=== PATIENT | female | born 1960 | race Caucasian/White ===

== ENCOUNTER 2023-12-12 21:47 | Inpatient (IN) | payer MEDICARE, BC, SELFPAY ==
--- NOTE | 2023-12-12 21:50 | W.CVOR.SURPR ---
CVOR Surgeon Immed Pre Op
-
I have examined this patient prior to performance of the scheduled procedure.
The patient's condition is unchanged from the time of the dictated/written History and
Physical and the patient is able to undergo the scheduled procedure.
--- NOTE | 2023-12-12 21:50 | W.PN.UPDATE ---
Update Note
Progress Note Update
63 y/o presented to [facility] with nstemi
cath revealed ostial rca disease
Unsuccessful PCI attempt with residual rca dissection
Pt without pain on arrival
IABP in place
Discussed with Dr Melendez in detail
Plan for emergent cabg to rca (?anamolous cx as well)
Discussed with patient who understands and wishes to proceed with emergent cabg
In additon, I have discussed all of this with her son on the phone.
Pt arrival to 940PM
[2023-12-12 22:05] LABS: ACT+ - POC 123 Seconds (82-134)
--- NOTE | 2023-12-12 22:35 | HPS.HSE ---
Family Physician
-
Family Physician: Dr. Thanh Quintero
Outpatient Savings Counselor: Dr. Omega Melendez at [facility]
Inpatient Savings Counselor: Dr. Tamie De Guzman
Chief Complaint
-
Transfer from [facility] on 12/12/23 for emergent CABG d/t RCA dissection, on IABP.
History of Present Illness
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 She has been on daily Plavix since. Pt had loop recorder after CVA, which showed no evidence of a-fib. She also has hx of HTN,
HLD, chronic hyperkalemia, DM II (most recent HgA1c 6.7%), diagnosis of mixed autoimmune disease, GERD, psoriatic arthritis, R carpal tunnel surgery, sinus surgery.
Pt. usually takes care of her who is bedbound. After moving him in bed on the morning of 12/12/23, she noted L-sided chest pain radiating to her jaw for 1 hour intermittently. EMS was called and she was given 4 baby aspirins. On arrival to the
ED, pt was pain free and demonstrated stable vital signs. She was diagnosed with NSTEMI with high-sensitivity troponin trends 35->262. Of note, K was 5.4. Her most recent LDL was 78. Patient could not tolerate higher dose of Atorvastatin and has
been on 20 mg daily. As a screening measure, pt had nuclear stress test in 2022 which did not demonstrate ischemia or scar.
Echo 12/12/23 revealed normal LVEF 60-65%, nl RV systolic fxn, nl R atrium size with lipomatous hypertrophy of the interatrial septum, grade I diastolic dysfunction, no significant valvular dz.
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 There was hazy 90% stenosis of proximal RCA with appearance of plaque rupture, which was the culprit of pt's NSTEMI. Unfortunately, PCI was
unsuccessful due to anatomic reasons and a flow-limiting dissection flap propagated following attempted intervention, which was unable to be recrossed by a wire. Pt was stabilized with IABP, iv Nitro, Heparin and transferred emergently to for
CABG. Cath also revealed mild-mod nonobstructive LAD dz. 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 There were normal left heart catheterization
pressures with no evidence of aortic stenosis.
On arrival, pt had no CP, no complaints, on 1:1 IABP.
Medical History
Past Medical History
Past Medical History: Reports CVA (in 2020 with L sided hemiparesis- resolved), GERD, HTN, Hypercholesterolemia and NIDDM
Additional Past Medical History:
Psoriatic arthritis, hyperkalemia (on Lokelma 3 times per week), mixed autoimmune dz
Past Surgical History: Reports Other (R carpal tunnel surgery, sinus surgery)
Additional Past Surgical History:
Implantable loop recorder, R carpal tunnel surgery, sinus surgery
Social History
Tobacco: Former Smoker (2 ppd for 4-5 years, quit in 1985)
Alcohol: None
Drug: None
Personal: (takes care of , who is bedbound)
Living: With Family
Family History
Family History: CAD and Other (DM II , Liver Cancer, COPD)
Allergies / Home Medications
Allergies reflects when Allergies were last updated in [employer].
Home Medication
Home Medication List (Pre admission)
�Medication �Instructions �Recorded
amlodipine 10 mg tablet 10 mg PO DAILY 12/12/23
apremilast 30 mg tablet 30 mg PO BID 12/12/23
atorvastatin 20 mg tablet 20 mg PO HS 12/12/23
carvedilol 12.5 mg tablet (Coreg) 12.5 mg PO BID 12/12/23
clopidogrel 75 mg tablet 75 mg PO DAILY 12/12/23
famotidine 20 mg tablet 20 mg PO BID 12/12/23
metformin 500 mg tablet 500 mg PO BID 12/12/23
sodium zirconium cyclosilicate 5 PO QMWF 12/12/23
gram oral powder packet (Lokelma)
Allergies
Allergy/AdvReac Type Severity Reaction Status Date / Time
Sulfa (Sulfonamide Allergy unknown Verified 12/12/23 18:42
Antibiotics)
Allergy/Medication List:
Sulfa
Review of Systems
-
Unable to obtain full review of systems at this time due to: Acuity (Pt taken emergently to CVOR)
History Source: Transfer Record
Constitutional: Reports See HPI
Physical Exam
Physical Exam
General: Well Developed, Well Nourished and No Apparent Distress
HEENT: NormoCephalic, Anicteric, Moist mucous membranes and Atraumatic
Respiratory: Non Labored Respirations
Cardiac: S1/S2
GI: Soft and Non Tender
Neuro: Awake and AO x 3
Psych: Calm and Intact Judgment/Insight
Data Reviewed
-
Medical Tests (Nuc Med, Echo, EKG etc): Report Reviewed by me
Lab Data: Labs Reviewed by me
Old Records: Reviewed
Impression/Plan
-
IMPRESSION:
-NSTEMI with 90% prox RCA stenosis. PCI was unsuccessful and complicated by a flow-limiting dissection. Pt was stabilized with IABP placement, iv Nitro, iv Heparin and sent for urgent CABG on 12/12/23
-LVEF nl 60-65%, no significant valvular dz
-DM II (latest HgA1c was 6.7)
-HTN
-HLD (tolerated 20 mg Atorvastatin, didn't tolerate higher doses of Atorvastatin. Last LDL was 78)
-Chronic Hyperkalemia- on Lokelma 5 grams on Fri, Fri, and Friday
-CVA in 2020 with resolved L hemiparesis, on daily Plavix since. Pt received 75 mg of Plavix on 12/12/23
-Mixed autoimmune dz
-Psoriatic arthritis
-Former smoker, quit 1985
-R carpal tunnel surgery
-Hx sinus surgery
-GERD
PLAN:
-pt was taken urgently to CVOR by Dr. Sorensen
[2023-12-12 23:10] LABS: B.E. - POC -3.5 mmol/L; Glucose - POC 113 mg/dl (65-99); HCO3 - POC 22 mmol/L (21-29); Hematocrit - POC 41 % PCV (37-47); Hemodilution- POC Yes; Hemoglobin Calculated - POC 13.8; Ionized Calcium - POC 1.23 mmol/L (1.12-1.27); O2 Saturation %Calculated-POC 99.9 5 (92-96); PCO2 - POC 38 mmHg (35-45); PO2 - POC 287 mmHg (80-100); POC Comment PRE; Potassium - POC 3.8 mmol/L (3.6-5.0); Sodium - POC 143 mmol/L (135-145); pH - POC 7.36 (7.35-7.45)
[2023-12-12 23:27] LABS: Urine Albumin Negative (Neg - Trace); Urine Bilirubin Negative (Negative); Urine Character Clear (Clear); Urine Color Straw; Urine Glucose Negative (Negative); Urine Ketone 1+ (Negative); Urine Leukocyte Trace (Negative); Urine Nitrite Negative (Negative); Urine Occult Blood Trace (Negative); Urine Specific Gravity 1.015 (<1.030); Urine Urobilinogen Negative (Neg - 1+)
[2023-12-13] VITALS (42 sets, daily range): BP systolic 88–133; BP diastolic 51–83; BMI 31.8
[2023-12-13 00:18] LABS: B.E. - POC -5.4 mmol/L; Glucose - POC 124 mg/dl (65-99); HCO3 - POC 22 mmol/L (21-29); Hematocrit - POC 33 % PCV (37-47); Hemodilution- POC Yes; Hemoglobin Calculated - POC 11.1; Ionized Calcium - POC 1.11 mmol/L (1.12-1.27); O2 Saturation %Calculated-POC 99.9 5 (92-96); PCO2 - POC 51 mmHg (35-45); PO2 - POC 309 mmHg (80-100); POC Comment OFF CPB; Sodium - POC 139 mmol/L (135-145); pH - POC 7.25 (7.35-7.45)
[2023-12-13 00:37] LABS: B.E. - POC -7.1 mmol/L; Glucose - POC 194 mg/dl (65-99); HCO3 - POC 20 mmol/L (21-29); Hematocrit - POC 33 % PCV (37-47); Hemodilution- POC Yes; Hemoglobin Calculated - POC 11.1; Ionized Calcium - POC 1.12 mmol/L (1.12-1.27); O2 Saturation %Calculated-POC 99.1 5 (92-96); PCO2 - POC 42 mmHg (35-45); PO2 - POC 154 mmHg (80-100); POC Comment POST; Potassium - POC 3.8 mmol/L (3.6-5.0); Sodium - POC 141 mmol/L (135-145); pH - POC 7.27 (7.35-7.45)
[2023-12-13 00:37] LABS: ACT+ - POC 98 Seconds (82-134)
--- NOTE | 2023-12-13 00:43 | W.PN.CT.SURG ---
CT Surgery Operative Note
-
Pre-op Diagnosis: nstemi
unsuccessful PCI with RCA dissection
chronic plavix therapy for cva
Post-op Diagnosis: Same
Procedure: Cabg x 1
ao-svg-rca
off pump
Left EVH
TTFM
Primary Surgeon: Highbloom
Assisting Surgeons: Zini - leg and chest
Specimen: None
Cultures: None
Complications / Blood Loss: None
Findings: Sharif with preserved EF pre and post revascularization
Good quality vein
good distal target
almost no flow in coronary when opened
100cc flow, PI .4
[2023-12-13 00:52] LABS: Urine Bacteria Few (Negative); Urine Squamous Cell 0-2 /LPF (Few)
[2023-12-13 01:42] LABS: Glucose - Point of Care 147 mg/dl (70-99)
[2023-12-13] MEDS: LEVOPHED 250 IV (02:00)
[2023-12-13] MEDS: NOVOLIN R INSULIN INFUSION 100 IV ×2 (02:00→20:48)
[2023-12-13] MEDS: NSS 500 IV (02:00)
[2023-12-13] MEDS: LR 500 IV (02:00)
[2023-12-13 02:03] LABS: Hematocrit 31.1 % (37.0-47.0); Hemoglobin 10.3 g/dL (12.0-16.0); Platelet Count 163 10^3/uL (130-400)
[2023-12-13 02:06] LABS: HCO3 19.7 mmol/L (21-28); Ionized Calcium 1.28 mMOL/L (1.15-1.33); PCO2 44 mmHg (32-35); PO2 133 mmHg (83-108); Potassium 3.8 mMOL/L (3.5-5.1); Sodium 137 mMOL/L (136-145); pH 7.26 (7.35-7.45)
[2023-12-13 02:08] LABS: Mixed Venous O2 Saturation 84.2 %
[2023-12-13 02:15] LABS: INR 1.36; PT 16.6 Sec (11.4-14.6)
[2023-12-13 02:16] LABS: APTT 29.5 Sec (23.4-35.0)
[2023-12-13 02:21] LABS: Blood Urea Nitrogen 16 mg/dl (7-17); Estimated Creatinine Clearance 84 ml/min; Glucose 141 mg/dl (70-99); Magnesium 2.5 mg/dl (1.6-2.3)
[2023-12-13] MEDS: KCL 50 IV ×2 (02:30→03:44)
[2023-12-13] MEDS: SODIUM BICARBONATE 100 MEQ IV (02:30)
[2023-12-13] MEDS: BACTROBAN 2% OINTMENT 1 APPLIC NASAL ×3 (03:00→21:38)
--- NOTE | 2023-12-13 03:00 | PTCARENOTE ---
Patient received from CVOR to room 2265. Intubated/Ventilator. #8.0 ETT 23cm Right lip. AC Rate 12 TV 500 PEEP 5 FiO2 100%. SaO2 100%. Patient sleepy. Precedex 0.6 mcq/kg/min (12.6 ml/hr). No adventitious breath sounds. Two chest tubes -
Mediastinal x2. Sinus Rhythm. Heart rate 70-80's. V-Wire. Levophed 2 mcq/min (7.5 ml/hr). Abdomen soft, round, nontender. Hypoactive bowel sounds. No BM. No vomiting. Brooks catheter - Hourly outputs as documented. Positive Doppler pulses -
Dorsalis pedis and Posterior tibial. Generalized edema. Right I.[place]. Cordis with [place] Catheter. Right radial arterial line. Right femoral arterial line. Right femoral IABP - 1:2 Frequency, EKG Trigger. Portable CXR completed. Endotracheal tube
moved to 21cm by Respiratory Therapist. FiO2 decreased to 70%. Mouth care provided. 1 AMP Sodium Bicarb x2 per PA Order. Insulin gtt - Glycemic Protocol. Assessment as documented.
[2023-12-13 03:09] LABS: Glucose - Point of Care 141 mg/dl (70-99)
[2023-12-13 03:17] LABS: B.E. 0.8 mmol/L; HCO3 25.3 mmol/L (21-28); PCO2 39 mmHg (32-35); PO2 158 mmHg (83-108); pH 7.42 (7.35-7.45)
[2023-12-13] MEDS: NEURONTIN PO (03:34)
[2023-12-13] MEDS: SENOKOT-S PO (03:34)
[2023-12-13] MEDS: TYLENOL PO ×2 (03:35→06:14)
[2023-12-13 04:15] LABS: Glucose - Point of Care 122 mg/dl (70-99)
--- NOTE | 2023-12-13 05:00 | PTCARENOTE ---
FiO2 decreased to 40%. SaO2 97%. Patient opening eyes - Pupils equal in size and reaction. Patient nodding head appropriately to simple verbal commands. Movement of extremities. Positive, equal hand grasps. Potassium chloride 20 mEq x2 IV.
One Platelet (262 ml) infused without difficulty - No transfusional reaction noted. Right radial arterial line dampened. Right femoral arterial line accessed - Flushes without difficulty - Zeroed and calibrated - Waveform within normal limits.
IABP readings as documented. Patient given CHG bath and linens changed. Chest tube dressing changed. Sternal incision - Surgical adhesive. Left groin puncture site intact. Left knee incision - Surgical adhesive - [place] Storm Wrap.
Assessment/Interventions as documented.
[2023-12-13 05:22] LABS: Glucose - Point of Care 119 mg/dl (70-99)
[2023-12-13 05:50] LABS: B.E. 0.7 mmol/L; HCO3 25.4 mmol/L (21-28); Ionized Calcium 1.13 mMOL/L (1.15-1.33); O2 Saturation % 97.4 % (94-98); PCO2 40 mmHg (32-35); PO2 71 mmHg (83-108); Potassium 4.5 mMOL/L (3.5-5.1); pH 7.41 (7.35-7.45)
[2023-12-13 05:58] LABS: Hematocrit 33.2 % (37.0-47.0); Hemoglobin 11.3 g/dL (12.0-16.0); Mean Corpuscular Hgb 29.2 pg (27.0-31.0); Mean Corpuscular Volume 85.8 fL (81.0-99.0); Mean Platelet Volume 10.1 fL (7.4-10.4); Platelet Count 190 10^3/uL (130-400); Red Blood Cell Count 3.87 10^6/uL (4.20-5.40); White Blood Cell Count 12.3 10^3/uL (4.8-10.8)
[2023-12-13] MEDS: OFIRMEV 100 IV (06:00)
[2023-12-13 06:19] LABS: Blood Urea Nitrogen 16 mg/dl (7-17); Calcium 8.3 mg/dl (8.4-10.2); Carbon Dioxide 24 mmol/L (22-30); Chloride 110 mmol/L (98-107); Estimated Creatinine Clearance 98 ml/min; Glucose 121 mg/dl (70-99); Magnesium 2.2 mg/dl (1.6-2.3); Potassium 4.6 mmol/L (3.5-5.1); Sodium 139 mmol/L (135-145); eGFR > 60.00
[2023-12-13 06:20] LABS: Glucose - Point of Care 133 mg/dl (70-99)
--- NOTE | 2023-12-13 06:25 | RESPNOTE ---
PT was extubated at this time following a 30 minute weaning trial and an acceptable ABG after. PT was placed on a 6 L nasal cannula post extubation and did well with her I/S, 3 x 1,000 mls.
--- NOTE | 2023-12-13 06:30 | PTCARENOTE ---
CPAP wean started at 0510 - Patient tolerating. IV Ofirmev for pain management. Patient extubated at 0625 without difficulty. Patient A+A+Ox3. No neurological deficits noted. Levophed and Precedex titrated off at 0500. Blood pressure 123/66
(97). Patient resting in bed without difficulty. Assessment/Interventions as documented.
--- NOTE | 2023-12-13 06:45 | W.PN.CT ---
Today's Communication / Plan
-
-pod #1
-no issues overnight, in nsr 70s, hemodynamically stable
-extubated uneventfully at 6:25 am
-got total 2 units platelets for coagulopathy, 100 bicarb overnight
-IABP 1:2 with MAP 70s-90s
-drips: insulin, 500cc LR @ 100/hr, Levo is off
-CT output: 2 meds 220 since OR
-wean off IABP- likely d/c today
-UO 250-350 per hr
-follow K (hx of hyperkalemia, on Lokelma at home)
-V-pw (off)
-current meds (ASA, Plavix, Lipitor, Lopressor, Protonix)
-encourage IS
Assessment / Plan
-
-s/p off-pump CABG x1 (Ao-svg-Rca); L EVH on 12/12/[address] Sorensen, pod #1
- Intraop Sharif with preserved EF pre and post revascularization
-NSTEMI with 90% prox RCA stenosis. PCI was unsuccessful and complicated by a flow-limiting dissection. Pt was stabilized with IABP placement, iv Nitro, iv Heparin and sent for urgent CABG on 12/12/23
-LVEF nl 60-65%, no significant valvular dz
-DM II (latest HgA1c was 6.7)
-HTN
-HLD (tolerated 20 mg Atorvastatin, didn't tolerate higher doses of Atorvastatin. Last LDL was 78)
-Chronic Hyperkalemia- on Lokelma 5 grams on Fri, Fri, and Friday
-CVA in 2020 with resolved L hemiparesis, on daily Plavix since. Pt received 75 mg of Plavix on 12/12/23
-Mixed autoimmune dz
-Psoriatic arthritis
-Former smoker, quit 1985
-R carpal tunnel surgery
-Hx sinus surgery
-GERD
-Acute postop blood loss anemia - stable, no transfusion
-Acute postop coagulopathy - s/p 2 unit platelets
-Acute postop metabolic acidosis
-Acute postop atelectasis
-Acute postop hypovolemia with subsequent hypervolemia
Discussed patient care with: Nursing and Care Team
Subjective
Procedure
-s/p off-pump CABG x1 (Ao-svg-Rca); L EVH on 12/12/[address] Sorensen
-
Date of Service: December 13, 2023
Objective Data
-
Lab Results
12/13/23 06:00
12/13/23 06:00
PT 16.6 Sec (11.4-14.6) H 12/13/23 01:53
INR 1.36 12/13/23 01:53
APTT 29.5 Sec (23.4-35.0) 12/13/23 01:53
Vital Signs
Vital Signs
Temp Pulse Resp BP Pulse Ox
97.0 F 81 12 122/80 98
12/13/23 03:00 12/13/23 03:00 12/13/23 03:00 12/13/23 03:00 12/13/23 03:00
CT Intake/Output/Weight
12/12/23 12/12/23 12/13/23
06:59 18:59 06:59
Intake Total 123.6 / 123.6
Output Total 370 / 370
Balance -246.4 / -246.4
SaO2: 98
Physical Exam
-
General: Other (sleepy, intubated)
Cardiovascular: Regular rate & rhythm, No Murmurs and No Rub
Respiratory: Decreased Breath Sounds
Sternum: Stable
Incision: Clean, Dry and Intact
Extremities: Other (trace edema b/l, 1+ DPs b/l)
Data Reviewed
-
Lab Results: Results Reviewed
Medications: Active Meds Reviewed
Chest X-Ray: Report Reviewed and Image Reviewed
ECG: Report Reviewed and Image Reviewed
--- NOTE | 2023-12-13 06:45 | CON.INTV ---
Consultation
Consultation Request
Date/Time Consultation Requested: 12/12
Date/Time Consultation Performed: 12/12
Reason for Consultation: Critical care
Medical History
-
History of Present Illness:
History obtained from the patient, medical records, outpatient records. Patient was transferred from [facility] 12/12/2023 emergently for CABG. patient had been on Plavix after recent questionable stroke. Workup ruled out obvious atrial
fibrillation. Patient developed acute left-sided chest pain radiating to the jaw for 1 hour on 12/11. EMS was called, patient was given baby aspirin and taken to [facility]. Patient had non-ST elevation [place], underwent cardiac
catheterization with unsuccessful PCI due to anatomic reasons and flow-limiting dissection flap. Patient had IABP placed, on nitroglycerin, heparin and transferred to [facility]. Patient went for bypass surgery, was extubated in the
morning 12/12. We are asked to help from critical care standpoint.
Presently, patient has incisional discomfort but otherwise denies any jaw pain, nausea, shortness of breath. She is conversant and comfortable appearing
.
PMH: Hypertension, hyperlipidemia, diabetes, obesity, chronic pain, cerebrovascular disease/stroke
Past Medical History
Past Medical History: None (See above)
Past Surgical History: None (See above)
Social History
Tobacco: Former Smoker ([id number], quit many years ago)
Alcohol: Occasional
Drug: None
Personal:
Living: With Family
Employment: Retired
Family History
Family History: Other (Parents . Family history negative for lung cancer, blood clots)
Allergies / Home Medications
Allergies
Allergy/AdvReac Type Severity Reaction Status Date / Time
Sulfa (Sulfonamide Allergy unknown Verified 12/12/23 18:42
Antibiotics)
Home Medications
�Medication �Instructions �Recorded �Confirmed �Last Taken �Type
amlodipine 10 mg tablet 10 mg PO DAILY 12/12/23 12/12/23 Unknown History
apremilast 30 mg tablet 30 mg PO BID 12/12/23 12/12/23 Unknown History
atorvastatin 20 mg tablet 20 mg PO HS 12/12/23 12/12/23 Unknown History
carvedilol 12.5 mg tablet (Coreg) 12.5 mg PO BID 12/12/23 12/12/23 Unknown History
clopidogrel 75 mg tablet 75 mg PO DAILY 12/12/23 12/12/23 12/12/23 History
75 mg
famotidine 20 mg tablet 20 mg PO BID 12/12/23 12/12/23 Unknown History
metformin 500 mg tablet 500 mg PO BID 12/12/23 12/12/23 Unknown History
sodium zirconium cyclosilicate 5 PO QMWF 12/12/23 Unknown History
gram oral powder packet (Lokelma)
Review of Systems
-
All other systems: Negative unless noted
Vitals / Labs / Diagnostic Testing
Vital Signs
Temp Pulse Resp BP Pulse Ox
97.5 F 85 15 127/83 97
12/13/23 06:00 12/13/23 06:00 12/13/23 06:00 12/13/23 06:00 12/13/23 06:00
Lab Data
12/13/23 05:40
12/13/23 06:00
Laboratory Results
12/13/23 12/13/23 12/13/23
00:38 01:53 03:09
PT Cancelled 16.6 H
INR Cancelled 1.36
APTT Cancelled 29.5
pH Cancelled 7.26 L 7.42
pCO2 Cancelled 44 H 39 H
pO2 Cancelled 133 H 158 H
HCO3 Cancelled 19.7 L 25.3
O2 Delivery Level Cancelled
12/13/23
05:40
PT
INR
APTT
pH 7.41
pCO2 40 H
pO2 71 L
HCO3 25.4
O2 Delivery Level
Diagnostic Testing:
Physical Exam
-
HEENT: Normocephalic, Anicteric, Other (IJ, A-line, chest tube) and Other (Large neck)
Cardiovascular: S1/S2, Regular Rhythm, Murmur (n), Rub (n) and Peripheral Edema (tr)
Respiratory: Wheeze (n), Rales (n), Rhonchi (n) and Other (Decreased breath sounds, mild splinting)
GI: Soft, Non Distended and Non Tender
Neurology: Awake, Alert and No Motor Deficits (Moves all extremities)
Skin: Other (Mild pallor)
General: Comfortable
Assessment
-
63-year-old female with history of hypertension, hyper lipidemia, diabetes, presents with acute chest pain with radiation to the jaw, had NST elevation [place], underwent cardiac catheterization at [facility] found to have flow-limiting
dissection unable to perform successful PCI, transferred to [facility] for bypass surgery on IABP. Patient is status post off-pump CABG 12/12, with IABP in place
S/p CABG x 1, 12/13/23
Unsuccessful PCI with RCA dissection at [facility] 12/12
IABP placed at [facility]
NSTEMI, eval at H
Chest pain/jaw pain
History of stroke, on Plavix
s/p platelets
History of hyperkalemia
Conditions present prior to admission
Hypertension/hyperlipidemia
Diabetes
Suspected sleep apnea
[id number]-[id number] history of smoking, quit
Plan/recommendations
At this time, patient is critically ill but appears to be stable. Extubated without difficulty this morning. Denies any chest tightness, jaw pain
Chest x-ray unremarkable, EKG with nonspecific changes
Chest tube output minimal.
Patient currently on insulin drip, IV fluids. Required norepinephrine overnight, currently being weaned off
Moving forward
Continue with management per CT surgery
Has been weaned off norepinephrine
Remains on insulin drip, follow blood sugars
IABP remains in place, 1:2, appropriate MAPS
Chest tube and IABP management per CT surgery
Follow electrolytes
Pain control, incentive spirometry
Strongly suspected sleep disordered breathing. Given comorbidities, would recommend outpatient workup and treatment as appropriate
Reviewed with critical care nursing
We will follow
TCCT 31 min
--- NOTE | 2023-12-13 07:36 | W.PN.ANS.POP ---
Anesthesia Post Operative
- Anesthesia Post Op Note
Vital Signs Stable-See Nursing Note: Yes
Airway Patent: Yes
Adequate Pain Control: Yes
Change in Mental Status: No
Current Postoperative Nausea & Vomiting: No
Anesthesia Complications: No
General Anesthetic Recall: No
Unplanned Admission: No
Post Op Hydration Adequate: Yes
[2023-12-13 08:11] LABS: Glucose - Point of Care 110 mg/dl (70-99)
[2023-12-13] MEDS: CALCIUM CHLORIDE 10% SYRINGE 50 MG IV (08:19)
[2023-12-13] MEDS: CALCIUM CHLORIDE 10% SYRINGE 50 ML IV (08:19)
[2023-12-13] MEDS: LR IV ×2 (08:19→11:14)
--- NOTE | 2023-12-13 08:30 | PTCARENOTE ---
SKIDDER LOADER, Laisha d/c IABP bedside. fem stop applied. pulses by doppler. A line d/c and held pressure. remains on insulin gtt per glycemic protocol. VSS. weaned to 4L nc. IS to 1250. SR/ST 80-100s. See MAR for med dosing for pain. Will d/c carlos and bulb
CTs this afternoon and get pt oob after 6 hr bedrest.
--- NOTE | 2023-12-13 08:51 | W.PN.CD ---
Addendum entered and electronically signed by Tamie De Guzman MD 12/13/23 11:58:
I saw and examined the patient.
The POULTRY FARMWORKER's note was reviewed and I agree with the note.
Comment: SHe is anixous to change positions, but no cp. She is has a reg rate and rhythm, lying flat on bed, lungs are cta b/l. Continue post op care. Will add zetia to her atorvastatin given need for better ldl and intolerance to higher
atorvastatin. Eventually may need a PCSK9 inhibitor.
Original Note:
Today's Communication / Plan
-
Follow telemetry
Impression / Plan
-
BACKGROUND: 63F transferred for emergent CABG. She had an NSTEMI with unsuccessful PCI due to anatomic reasons with dissection & IABP was placed prior to transfer. She was on clopidogrel for questionable CVA.
IMPRESSION/PLAN:
NSTEMI S/P CABG (Ao-SVG-RCA) by Dr Sorensen on
-EKG stable
-CHRISTIAN with preserved pre and post LVEF
-IABP removed this morning, FemStop in place
-Postoperative management per CT surgery
Postoperative coagulopathy s/p 2 platelet
HLD, did not tolerate doses greater than 20mg of atorvastatin, LDL > 70, consider transition to rosuvastatin
Type II DM (Hgba1c pending)
Chronic hyperkalemia on [facility]
Former smoker, continued cessation recommended
SUBJECTIVE:
Denies chest pain, shortness of breath, dizziness.
Physical Exam
Vital Signs/Labs
Vital Signs
Temp Pulse Resp BP Pulse Ox
97.8 F 82 21 118/68 96
12/13/23 08:00 12/13/23 08:00 12/13/23 08:00 12/13/23 08:00 12/13/23 08:00
12/12/23 12/13/23 12/14/23
06:59 06:59 06:59
Actual Weight 83.91 kg
12/13/23 05:40
12/13/23 06:00
PT 16.6 Sec (11.4-14.6) H 12/13/23 01:53
INR 1.36 12/13/23 01:53
APTT 29.5 Sec (23.4-35.0) 12/13/23 01:53
Magnesium Cancelled 12/13/23 06:00
LAB Results
12/12/23
22:08
Troponin I 1.280 H*
Physical Exam
Constitutional: No acute distress and Comfortable
EENT: Anicteric and Moist mucous membranes
Cardiovascular: Rhythm & rate is regular, Systolic murmur present and S1S2 is normal
Respiratory: Respiratory effort normal and Lungs clear to auscul.
GI: Soft, Distention absent, Flat, Non tender and Normal bowel sounds
Neuro/Psych: AO x 3
Other: Skin (Warm and dry without edema)
Data Reviewed
-
Date of Service: December 13, 2023
[2023-12-13] MEDS: NEURONTIN 100 MG PO ×3 (08:58→21:39)
[2023-12-13] MEDS: ANCEF 5 IV ×2 (08:58→16:54)
[2023-12-13] MEDS: DILAUDID 0.25 MG IV ×2 (08:58→18:32)
[2023-12-13] MEDS: MAGNESIUM OXIDE 500 MG PO ×2 (08:59→21:38)
[2023-12-13] MEDS: LIDOCAINE 4% PATCH 1 PATCH TOPICAL (08:59)
[2023-12-13] MEDS: SENOKOT-S 1 TABLET PO ×2 (08:59→21:39)
[2023-12-13] MEDS: LOPRESSOR 12.5 MG PO ×2 (08:59→21:38)
[2023-12-13] MEDS: PROTONIX 40 MG PO (08:59)
[2023-12-13] MEDS: PLAVIX 75 MG PO (08:59)
[2023-12-13] MEDS: NOVOLOG FLEXPEN SC ×2 (09:04→13:25)
--- NOTE | 2023-12-13 09:41 | W.PN.CARD.SR ---
Sheath/IABP Sheath Removal
IABP Sheath Removal
Right Arterial Femoral:
Site appearance prior to IABP sheath removal: Intact
IABP sheath removed by:: Registered nurse (KALANI)
Name of associate removing IABP sheath: Jessy URIARTE
Time of IABP sheath removal: 08:30
Time hemostatis achieved: 09:15
Site appearance post IABP sheath removal: Intact
Method of Hemostasis Post IABP Sheath Removal: External Pressure Device
Name of device: Fem-stop
Dressing dry and intact?: Yes
[2023-12-13 11:13] LABS: Glucose - Point of Care 108 mg/dl (70-99)
[2023-12-13 12:05] LABS: Glycohemoglobin (HgbA1c) 6.7 % (4.0-5.6)
[2023-12-13 13:25] LABS: Glucose - Point of Care 92 mg/dl (70-99)
[2023-12-13] MEDS: TYLENOL 1000 MG PO ×2 (13:27→21:39)
--- NOTE | 2023-12-13 15:10 | PTCARENOTE ---
OOB to chair. patient slightly dizzy. reports she has vertigo intermittently which is positional. VSS. tolerating diet.
[2023-12-13 15:15] LABS: Glucose - Point of Care 257 mg/dl (70-99)
[2023-12-13] MEDS: LIPITOR 20 MG PO (16:54)
[2023-12-13 16:58] LABS: Glucose - Point of Care 235 mg/dl (70-99)
[2023-12-13] MEDS: NOVOLOG FLEXPEN 4 UNITS SC (17:48)
[2023-12-13 18:36] LABS: Glucose - Point of Care 181 mg/dl (70-99)
[2023-12-13 20:09] LABS: Glucose - Point of Care 132 mg/dl (70-99)
--- NOTE | 2023-12-13 20:30 | PTCARENOTE ---
Report received from CHIQUITA Moreau. Walking rounds done. Pt sitting in recliner chair. initial SBP 88 mm HG. Repeat BP 94 mm Hg systolic. Pt helped to BSC to attempt to void. Unable to void. Pt helped back to bed. Bladder scanned for 97 mls urine.
CHERISE Lange notified. Encouraged po intake of water. Sats in bed were 88-89% on 2L/NC. CDB and IS done. IS peak 1000 mls. O2 increased to 5L/NC. Sats up to 95%.
Pt awake, alert, oriented x 4. Speech clear. BBS present. Decreased to B bases. Mediastinal CTs x 2 to bulb suction, draining SSG drainage. Pt in SR-ST. Sternal incision well-approximated, surgical adhesive present. No drainage, erythema. Radial
pulses +2 B, B DP and B PT found via doppler. (Palpable R DP pulse) Wound sites to B groins and L leg: see wound assessments. Belly soft, nontender. Normoactive bowel sounds x 4.
Glycemic protocol maintained. Pt on q 1 hr accuchecks.
Ongoing plan of care.
[2023-12-13 21:11] LABS: Glucose - Point of Care 161 mg/dl (70-99)
[2023-12-13] MEDS: ROXICODONE 2.5 MG PO (21:51)
[2023-12-13] MEDS: ZETIA 10 MG PO (21:51)
--- NOTE | 2023-12-13 22:00 | PTCARENOTE ---
Pt c/o 5/10 sternal pain. Scheduled Tylenol 1 Gm po given along with Roxicodone 2.5 mg po. Ongoing plan of care for pain assessment.
[2023-12-13 22:04] LABS: Glucose - Point of Care 138 mg/dl (70-99)
[2023-12-13 23:11] LABS: Glucose - Point of Care 106 mg/dl (70-99)
[2023-12-14] VITALS (17 sets, daily range): BP systolic 85–133; BP diastolic 53–82; BMI 32.8
[2023-12-14 01:14] LABS: Glucose - Point of Care 70 mg/dl (70-99)
[2023-12-14] MEDS: NSS IV (01:18)
[2023-12-14] MEDS: ANCEF 5 IV (01:21)
--- NOTE | 2023-12-14 02:00 | PTCARENOTE ---
Pt assisted to standing and to BSC. She voided 350 mls clear, yellow urine. Pt then helped to standing scale and weighed.
Pt helped back to bed. Dressing changes done to chest tubes/V wires. Storm wrap removed from LLE. CHG bath done. Blood glucose checked. Glycemic protocol followed. VS recorded.
[2023-12-14 02:06] LABS: Glucose - Point of Care 126 mg/dl (70-99)
[2023-12-14 03:35] LABS: Glucose - Point of Care 110 mg/dl (70-99)
[2023-12-14] MEDS: ROXICODONE 2.5 MG PO ×3 (04:04→23:43)
--- NOTE | 2023-12-14 05:05 | W.PN.CT ---
Today's Communication / Plan
-
-pod #2
-no issues overnight, in nsr 70s, hemodynamically stable
-IABP out 12/12
-remains on insulin drip
-CT output: L med 20/40 R med 40/90 in 12/24 hrs
-follow K (hx of hyperkalemia, on Lokelma at home)
-V-pw (off)
-current meds (ASA, Plavix, Lipitor, Lopressor, Protonix)
-encourage IS
Assessment / Plan
-
-s/p off-pump CABG x1 (Ao-svg-Rca); L EVH on 12/12/[address] Sorensen, pod #2
- Intraop Sharif with preserved EF pre and post revascularization
-NSTEMI with 90% prox RCA stenosis. PCI was unsuccessful and complicated by a flow-limiting dissection. Pt was stabilized with IABP placement, iv Nitro, iv Heparin and sent for urgent CABG on 12/12/23
-LVEF nl 60-65%, no significant valvular dz
-DM II (latest HgA1c was 6.7)
-HTN
-HLD (tolerated 20 mg Atorvastatin, didn't tolerate higher doses of Atorvastatin. Last LDL was 78)
-Chronic Hyperkalemia- on Lokelma 5 grams on Fri, Fri, and Friday
-CVA in 2020 with resolved L hemiparesis, on daily Plavix since. Pt received 75 mg of Plavix on 12/12/23
-Mixed autoimmune dz
-Psoriatic arthritis
-Former smoker, quit 1985
-R carpal tunnel surgery
-Hx sinus surgery
-GERD
-Acute postop blood loss anemia - stable, no transfusion
-Acute postop coagulopathy - s/p 2 unit platelets
-Acute postop metabolic acidosis
-Acute postop atelectasis
-Acute postop hypovolemia with subsequent hypervolemia
Subjective
Procedure
-s/p off-pump CABG x1 (Ao-svg-Rca); L EVH on 12/12/[address] Sorensen
-
Date of Service: December 14, 2023
Objective Data
-
PT 16.6 Sec (11.4-14.6) H 12/13/23 01:53
INR 1.36 12/13/23 01:53
APTT 29.5 Sec (23.4-35.0) 12/13/23 01:53
Vital Signs
Vital Signs
Temp Pulse Resp BP Pulse Ox
98.4 F 91 16 110/59 95
12/14/23 02:00 12/14/23 03:00 12/14/23 02:00 12/14/23 02:00 12/14/23 02:00
CT Intake/Output/Weight
12/13/23 12/13/23 12/14/23
06:59 18:59 06:59
Intake Total 1133.6 / 1133.6 4.3 / 435.5 431.2 / 435.5
Output Total 1730 / 1730 665 / 1075 410 / 1075
Balance -596.4 / -596.4 -660.7 / -639.5 21.2 / -639.5
SaO2: 95
Physical Exam
-
General: Awake, Oriented and AOx3
Cardiovascular: Regular rate & rhythm, Murmur and No Rub
Respiratory: Clear, Equal and Decreased Breath Sounds
Sternum: Stable
Incision: Clean, Dry and Intact
Extremities: No Edema and No Erythema
Data Reviewed
-
Lab Results: Results Reviewed
Medications: Active Meds Reviewed
Chest X-Ray: Report Reviewed
ECG: Report Reviewed
[2023-12-14 05:33] LABS: Glucose - Point of Care 91 mg/dl (70-99)
[2023-12-14] MEDS: TYLENOL 1000 MG PO ×3 (05:47→22:13)
[2023-12-14 06:01] LABS: Hematocrit 30.2 % (37.0-47.0); Hemoglobin 10.2 g/dL (12.0-16.0); Mean Corp Hgb Conc. 33.8 g/dL (33.0-37.0); Mean Corpuscular Hgb 28.6 pg (27.0-31.0); Mean Corpuscular Volume 84.6 fL (81.0-99.0); Mean Platelet Volume 10.2 fL (7.4-10.4); Platelet Count 184 10^3/uL (130-400); Red Blood Cell Count 3.57 10^6/uL (4.20-5.40); Red Cell Dist. Width 14.4 % (11.5-14.5); White Blood Cell Count 11.5 10^3/uL (4.8-10.8)
[2023-12-14 06:23] LABS: Blood Urea Nitrogen 20 mg/dl (7-17); Calcium 8.8 mg/dl (8.4-10.2); Carbon Dioxide 25 mmol/L (22-30); Chloride 103 mmol/L (98-107); Estimated Creatinine Clearance 66 ml/min; Glucose 92 mg/dl (70-99); Magnesium 2.2 mg/dl (1.6-2.3); Potassium 4.5 mmol/L (3.5-5.1); Sodium 133 mmol/L (135-145); eGFR > 60.00
--- NOTE | 2023-12-14 06:25 | W.PN.INTV ---
Today's Communication / Plan
Recommendations
Wean off insulin drip
Pain control, incentive spirometry, out of bed to chair
Would recommend outpatient sleep evaluation given comorbidities
Information left in chart
Once transferred out of ICU, we will sign off. Please call with questions
Assessment
-
63-year-old female with history of hypertension, hyper lipidemia, diabetes, presents with acute chest pain with radiation to the jaw, had NST elevation [place], underwent cardiac catheterization at [facility] found to have flow-limiting
dissection unable to perform successful PCI, transferred to [facility] for bypass surgery on IABP. Patient is status post off-pump CABG 12/12, with IABP in place
S/p CABG x 1, 12/13/23
Unsuccessful PCI with RCA dissection at [facility] 12/12
IABP placed at [facility]
NSTEMI, eval at [facility]
Chest pain/jaw pain
History of stroke, on Plavix
s/p platelets
History of hyperkalemia
Conditions present prior to admission
Hypertension/hyperlipidemia
Diabetes
Suspected sleep apnea
[id number] history of smoking, quit
Plan/recommendations
At this time, patient appears to be comfortable
Chest exam is clear. Mild complaints of vertigo noted
Chest x-ray without acute infiltrates
Remains on insulin drip
Moving forward
Continue with management per CT surgery
Has been weaned off norepinephrine
Remains on insulin drip, follow blood sugars
IABP removed 12/12
Follow electrolytes
Pain control, incentive spirometry
Strongly suspected sleep disordered breathing. Given comorbidities, would recommend outpatient workup and treatment as appropriate
Reviewed with critical care nursing
Subjective Dataa
Subjective Data
Date of Service:
Date of Service: December 14, 2023
Subjective:
Patient is feeling well. Has some mild incisional pain. Denies nausea, abdominal pain. Describes vertigo otherwise appears to be comfortable
Objective Data
Data Reviewed
Vital Signs / I&O / Oxygen:
Vital Signs
Temp Pulse Resp BP Pulse Ox
98.3 F 99 16 114/67 95
12/14/23 04:00 12/14/23 05:41 12/14/23 04:00 12/14/23 05:41 12/14/23 05:09
Intake and Output
12/12/23 12/13/23 12/14/23
06:59 06:59 06:59
Intake Total 1133.6 / 1133.6 435.5 / 435.5
Output Total 1730 / 1730 1075 / 1075
Balance -596.4 / -596.4 -639.5 / -639.5
SaO2 [CPAP] 96
SaO2 [A/C] 96
SaO2 95
Nasal Cannula flow liters per 5
minute
Physical Exam
General: Comfortable and Other (Right IJ)
HEENT: Normocephalic and Anicteric
Cardiovascular: S1-S2, Regular Rhythm, Murmur (n) and Rub (n)
Respiratory: Wheeze (n), Crackles (n), Rhonchi (n) and Non-Labored Respirations
GI: Soft, Non Distended and Non Tender
Neurology: Awake, Alert and No Motor Deficits
Skin: Cyanosis (n) and Jaundice (n)
Labs/Micro/Reports
Lab Data
12/14/23 05:37
12/14/23 05:37
--- NOTE | 2023-12-14 08:00 | PTCARENOTE ---
Resumed care of patient from previous RN. Walking rounds done. Resting in bed at time of assessment. Pt aaox3. VSS. ST/ST on monitor. HR 90s-115. lungs diminished at bases with nonprod moist cough. CTx2 Med present to bulb suction. minimal output.
+bs, stress inc. BRP. Sternal incision well-approximated. additional surgical sites c/d/i. weakly palpable pulses. remains on insulin per glycemis protocol. Tolerating pain well. will continue to monitor.
[2023-12-14 08:11] LABS: Glucose - Point of Care 143 mg/dl (70-99)
[2023-12-14] MEDS: LIDOCAINE 4% PATCH 1 PATCH TOPICAL (08:13)
[2023-12-14] MEDS: LOW STRENGTH ASPIRIN 81 MG PO (08:13)
[2023-12-14] MEDS: BACTROBAN 2% OINTMENT 1 APPLIC NASAL ×2 (08:13→20:45)
[2023-12-14] MEDS: MAGNESIUM OXIDE PO (08:14)
[2023-12-14] MEDS: NEURONTIN 100 MG PO ×3 (08:30→22:13)
[2023-12-14] MEDS: PROTONIX 40 MG PO (08:30)
[2023-12-14] MEDS: PLAVIX 75 MG PO (08:30)
[2023-12-14] MEDS: SENOKOT-S 1 TABLET PO ×2 (08:31→20:45)
[2023-12-14] MEDS: NOVOLOG FLEXPEN 4 UNITS SC ×3 (08:32→17:45)
[2023-12-14] MEDS: LOPRESSOR 12.5 MG PO (08:32)
[2023-12-14 11:15] LABS: Glucose - Point of Care 150 mg/dl (70-99)
[2023-12-14] MEDS: TYLENOL 650 MG PO (11:17)
--- NOTE | 2023-12-14 11:53 | PTCARENOTE ---
d/c chest tubes bedside. no issues. walked into bathroom. HR 115-120s with ambulation. [employer] aware
[2023-12-14 13:12] LABS: Glucose - Point of Care 82 mg/dl (70-99)
[2023-12-14] MEDS: TYLENOL PO (13:13)
[2023-12-14 14:48] LABS: Glucose - Point of Care 209 mg/dl (70-99)
[2023-12-14] MEDS: LIPITOR 20 MG PO (17:01)
[2023-12-14] MEDS: LOPRESSOR 5 MG IV (17:02)
[2023-12-14] MEDS: LOPRESSOR 25 MG PO (20:45)
[2023-12-14] MEDS: MAGNESIUM OXIDE 500 MG PO (20:45)
[2023-12-14] MEDS: PEPCID 20 MG PO (20:45)
[2023-12-14 21:04] LABS: Glucose - Point of Care 137 mg/dl (70-99)
[2023-12-14 21:04] LABS: Glucose - Point of Care 166 mg/dl (70-99)
[2023-12-14 21:04] LABS: Glucose - Point of Care 207 mg/dl (70-99)
--- NOTE | 2023-12-14 22:03 | PTCARENOTE ---
Assumed pt care. Walking rounds completed with previous RN. Pt OOB in chair at time of assessment. AAO x 4, reports intermittent sternal pain/discomfort - reports tolerable & alleviated with Tylenol. Pt on RA, POX 93%, posterior BS diminished in B/L
bases, non-productive intermittent cough, denies SOB/HER. NSR/ST on monitor with activity, heart tones normal, epicardial v-wire present & off. L DP pulse doppler, R DP pulse +1, R radial +1, L Radial +2. Generalized trace anasarca present.
Tolerating ambulating in room. BS audible, no BM, tolerating PO intake. Voiding in bathroom, stress incontinence. Procedural sites intact. RIJ Cordis maintained with KVO. PIV present & patent. Insulin gtt con't per protocol. Linens changed, CHG
cloth bath performed. Pt assisted into bed.
[2023-12-14] MEDS: ZETIA 10 MG PO (22:13)
[2023-12-14 23:47] LABS: Glucose - Point of Care 115 mg/dl (70-99)
--- NOTE | 2023-12-14 23:54 | PTCARENOTE ---
VSS. Pt assisted into bathroom to void, minimal assistance required. Placed on 2L NC for POX 97-99%, remains 96% with NC. PRN Roxicodone ordered for pain. No other changes.
[2023-12-15] VITALS (23 sets, daily range): BP systolic 86–122; BP diastolic 58–74; PULSE 106; O2SAT 94; BMI 32.6
[2023-12-15 01:51] LABS: Glucose - Point of Care 91 mg/dl (70-99)
[2023-12-15] MEDS: NOVOLIN R INSULIN INFUSION 100 IV (03:56)
[2023-12-15] MEDS: NSS 500 IV (03:56)
[2023-12-15 04:08] LABS: Glucose - Point of Care 77 mg/dl (70-99)
--- NOTE | 2023-12-15 04:11 | PTCARENOTE ---
VS obtained. Pt sleeping between care. Labs drawn & sent. Insulin gtt con't - see protocol. No other changes.
[2023-12-15 04:16] LABS: Hematocrit 27.1 % (37.0-47.0); Hemoglobin 8.9 g/dL (12.0-16.0); Mean Corp Hgb Conc. 32.8 g/dL (33.0-37.0); Mean Corpuscular Hgb 28.2 pg (27.0-31.0); Mean Corpuscular Volume 85.8 fL (81.0-99.0); Mean Platelet Volume 10.1 fL (7.4-10.4); Platelet Count 161 10^3/uL (130-400); Red Blood Cell Count 3.16 10^6/uL (4.20-5.40); Red Cell Dist. Width 14.2 % (11.5-14.5); White Blood Cell Count 8.6 10^3/uL (4.8-10.8)
[2023-12-15] MEDS: ROXICODONE 2.5 MG PO ×3 (04:24→23:25)
[2023-12-15 04:41] LABS: Blood Urea Nitrogen 22 mg/dl (7-17); Calcium 8.4 mg/dl (8.4-10.2); Carbon Dioxide 26 mmol/L (22-30); Chloride 104 mmol/L (98-107); Estimated Creatinine Clearance 66 ml/min; Glucose 107 mg/dl (70-99); Magnesium 2.2 mg/dl (1.6-2.3); Potassium 4.7 mmol/L (3.5-5.1); Sodium 133 mmol/L (135-145); eGFR > 60.00
--- NOTE | 2023-12-15 04:59 | W.PN.CT ---
Today's Communication / Plan
-
-pod #3
-no issues overnight, in nsr 70s, hemodynamically stable, BB increased yesterday
-remains on insulin drip pending DM mgt to see
-CTs DCd yesterday
-follow K (hx of hyperkalemia, on Lokelma at home)
-V-pw (off)
-current meds (ASA, Plavix, Lipitor, Lopressor, Protonix)
-encourage IS/OOB/ambulate
Assessment / Plan
-
-s/p off-pump CABG x1 (Ao-svg-Rca); L EVH on 12/12/[address] Sorensen, pod #3
- Intraop Sharif with preserved EF pre and post revascularization
-NSTEMI with 90% prox RCA stenosis. PCI was unsuccessful and complicated by a flow-limiting dissection. Pt was stabilized with IABP placement, iv Nitro, iv Heparin and sent for urgent CABG on 12/12/23
-LVEF nl 60-65%, no significant valvular dz
-DM II (latest HgA1c was 6.7)
-HTN
-HLD (tolerated 20 mg Atorvastatin, didn't tolerate higher doses of Atorvastatin. Last LDL was 78)
-Chronic Hyperkalemia- on Lokelma 5 grams on Fri, Fri, and Friday
-CVA in 2020 with resolved L hemiparesis, on daily Plavix since. Pt received 75 mg of Plavix on 12/12/23
-Mixed autoimmune dz
-Psoriatic arthritis
-Former smoker, quit 1985
-R carpal tunnel surgery
-Hx sinus surgery
-GERD
-Acute postop blood loss anemia - stable, no transfusion
-Acute postop coagulopathy - s/p 2 unit platelets
-Acute postop metabolic acidosis
-Acute postop atelectasis
-Acute postop hypovolemia with subsequent hypervolemia
Subjective
Procedure
-s/p off-pump CABG x1 (Ao-svg-Rca); L EVH on 12/12/[address] Sorensen
-
Date of Service: December 15, 2023
Objective Data
-
Lab Results
12/15/23 04:03
12/15/23 04:03
PT 16.6 Sec (11.4-14.6) H 12/13/23 01:53
INR 1.36 12/13/23 01:53
APTT 29.5 Sec (23.4-35.0) 12/13/23 01:53
Vital Signs
Vital Signs
Temp Pulse Resp BP Pulse Ox
98.4 F 87 18 96/63 96
12/15/23 04:12 12/15/23 04:00 12/15/23 04:12 12/15/23 04:00 12/15/23 04:12
CT Intake/Output/Weight
12/14/23 12/14/23 12/15/23
06:59 18:59 06:59
Intake Total 431.2 / 435.5 11.6 / 439.6 428 / 439.6
Output Total 410 / 1075 30 / 30
Balance 21.2 / -639.5 -18.4 / 409.6 428 / 409.6
SaO2: 96
Physical Exam
-
General: Awake, Oriented and AOx3
Cardiovascular: Regular rate & rhythm
Respiratory: Clear and Equal
Sternum: Stable
Incision: Clean, Dry and Intact
Extremities: Edema +1
Data Reviewed
-
Lab Results: Results Reviewed
Medications: Active Meds Reviewed
Chest X-Ray: Report Reviewed
ECG: Report Reviewed
[2023-12-15 06:28] LABS: Glucose - Point of Care 173 mg/dl (70-99)
[2023-12-15] MEDS: TYLENOL 1000 MG PO ×2 (06:29→23:15)
[2023-12-15 07:56] LABS: ACT+ - POC > 1003 Seconds (82-134)
[2023-12-15 08:12] LABS: Glucose - Point of Care 110 mg/dl (70-99)
[2023-12-15] MEDS: NOVOLOG FLEXPEN 4 UNITS SC ×2 (08:13→12:20)
[2023-12-15 08:26] LABS: Glucose - Point of Care 115 mg/dl (70-99)
--- NOTE | 2023-12-15 09:41 | PTCARENOTE ---
assumed care of pt from previous shift RN, sinus rhythm on tele, VSS, +peripheral pulses, no edema. Lungs w fine crackles to left base, right lung clr. pox 94% on RA. Coughing and deep breathing encouraged. +bs, tolerating PO intake, voids
spontaneously. Right IJ cordis w KVO infusing, right arm peripheral IV w insulin infusing per glycemic protocol. MSI approximated w surgical glue intact, CT sites scabbed, V wire insulated- site care provided. Pt states pain is well controlled. Pt
did have an episode of dizziness, VSS, blood glucose WNL, assisted to bed, PITA at bedside. Symptoms resolved, will monitor.
--- NOTE | 2023-12-15 09:48 | PN.DE.MGMTRT ---
Insulin Management
- -
12/15/2023: Diabetes Management Consult
63 year old female with PMH: HTN, HLD, T2DM. Pt presented to [facility] with acute chest pain, noted for NSTEMI with 90% prox RCA stenosis. PCI was unsuccessful and complicated by a flow-limiting dissection. Pt was stabilized with IABP
placement, IV Nitro, IV Heparin and was transferred to [facility] for urgent CABG. Patient is now POD #3 s/p off-pump CABG x1.
Pt is supposed to take Metformin 500mg BID, but reports that she was taking 500mg in AM and 250 in PM due to recurrent episodes of Hypoglycemia. She reports that she is struggling with her diet and finds herself not eating enough carbs especially at
diner time. Has a working meter, monitors once a day.
A1C 6.7%, Cr 0.9, eGFR >60
Pt awake, A/O x3, sitting up in chair, doing well, offers no complaints, able to discuss Diabetes Mgt.
Was managed on Critical care Glycemic protocol x48 hrs post op.
Continues on insulin drip, glucose has remained stable, 77 to 173 requiring 0.1 to 4 units on insulin/hr
Will transition off drip to oral regimen. Discussed increasing Metformin dose and pt was agreeable. assured pt that we will closely monitor her blood sugar and adjust dose if necessary. Give Lantus 10 units x1 now. Turn drip off 1 hr after
administering insulin.
Give Metformin 1000 mg in AM and 500 mg in PM. Discussed SGLT2 therapy and pt declined stating that she has chronic hx of recurrent UTIs/yeast infections due to a Neurogenic bladder with urinary incontinence. Pt states that she wears depends and
that those meds will put increase her risk for recurrent UTI and yeast infections.
Discussed outpatient Diabetes classes, provided flyer and encouraged pt to call and register as she will benefit from getting a meal plan, getting more details of micronutrients and carb counting.
Diabetes History
- -
Type of Diabetes: 2
Pre-Admission Diabetes Regimen
12/15/23
04:03
Creatinine 0.9
Lab Results
Hemoglobin A1c 6.7 % (4.0-5.6) H 12/13/23 05:40
Insulin Pump Settings
IP Diabetes Regimen
12/14/23 12/14/23 12/14/23
11:13 13:10 14:48
Glucose
POC Glucose 150 H 82 209 H
12/14/23 12/14/23 12/14/23
16:59 19:17 20:18
Glucose
POC Glucose 137 H 207 H 166 H
12/14/23 12/15/23 12/15/23
23:42 01:48 04:03
Glucose 107 H
POC Glucose 115 H 91 77
12/15/23 12/15/23 12/15/23
06:25 08:11 08:25
Glucose
POC Glucose 173 H 110 H 115 H
Meal type: Dinner
Amount consumed: 100%
Amount consumed: 100%
Patient Education
--- NOTE | 2023-12-15 10:08 | W.PN.CD ---
Today's Communication / Plan
-
Increase activity
Follow BP
check tsh (ordered) due to tachycardia
Impression / Plan
-
BACKGROUND: 63F transferred for emergent CABG. She had an NSTEMI with unsuccessful PCI due to anatomic reasons with dissection & IABP was placed prior to transfer. She was on clopidogrel for questionable CVA.
IMPRESSION/PLAN:
NSTEMI S/P CABG (Ao-SVG-RCA) by Dr Sorensen on
-EKG without inferior injury pattern
-CHRISTIAN with preserved pre and post LVEF
-Doing well POD#3
HLD
did not tolerate doses greater than 20mg of atorvastatin, LDL > 70
rosuvastatin 20mg should be started
Type II DM (Hgba1c 6.7)
Chronic hyperkalemia on [facility]
Former smoker, continued cessation recommended
Possible home tomorrow
SUBJECTIVE:
Denies chest pain, shortness of breath, dizziness.
Physical Exam
Vital Signs/Labs
Vital Signs
Temp Pulse Resp BP Pulse Ox
98.4 F 95 16 122/73 95
12/15/23 08:00 12/15/23 08:31 12/15/23 08:00 12/15/23 08:31 12/15/23 08:00
12/14/23 12/15/23 12/16/23
06:59 06:59 06:59
Actual Weight 190 lb 11.198 oz 189 lb 9.561 oz
12/15/23 04:03
12/15/23 04:03
PT 16.6 Sec (11.4-14.6) H 12/13/23 01:53
INR 1.36 12/13/23 01:53
APTT 29.5 Sec (23.4-35.0) 12/13/23 01:53
Magnesium 2.2 mg/dl (1.6-2.3) 12/15/23 04:03
LAB Results
12/12/23
22:08
Troponin I 1.280 H*
Physical Exam
Constitutional: No acute distress and Comfortable
Cardiovascular: Rhythm & rate is regular and Murmur/rub/gallop absent
Respiratory: Respiratory effort normal, Lungs clear to auscul. and Wheeze Absent
GI: Soft and Non tender
Neuro/Psych: AO x 3 and Motor deficits absent
Data Reviewed
-
Date of Service: December 15, 2023
[2023-12-15] MEDS: LIDOCAINE 4% PATCH 1 PATCH TOPICAL (10:42)
[2023-12-15] MEDS: ANTIVERT 12.5 MG PO (10:42)
[2023-12-15] MEDS: LOW STRENGTH ASPIRIN 81 MG PO (10:43)
[2023-12-15] MEDS: MAGNESIUM OXIDE 500 MG PO ×2 (10:43→20:19)
[2023-12-15] MEDS: PEPCID 20 MG PO ×2 (10:43→20:20)
[2023-12-15] MEDS: NEURONTIN 100 MG PO ×3 (10:43→23:15)
[2023-12-15] MEDS: LOPRESSOR 25 MG PO ×2 (10:43→20:19)
[2023-12-15] MEDS: SENOKOT-S 1 TABLET PO ×2 (10:44→20:19)
[2023-12-15] MEDS: BACTROBAN 2% OINTMENT 1 APPLIC NASAL ×2 (10:44→20:20)
[2023-12-15] MEDS: GLUCOPHAGE 1000 MG PO (10:44)
[2023-12-15] MEDS: PLAVIX 75 MG PO (10:44)
[2023-12-15 10:54] LABS: Glucose - Point of Care 147 mg/dl (70-99)
[2023-12-15] MEDS: LANTUS 0.1 UNITS SC (10:59)
[2023-12-15 12:23] LABS: Glucose - Point of Care 131 mg/dl (70-99)
--- NOTE | 2023-12-15 15:35 | PTCARENOTE ---
VSS, sinus rhythm maintained on tele,
--- NOTE | 2023-12-15 15:40 | CM ---
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 she and her son care for her husb at home, they have ceiling mounted lifts, WC, WC Van. she
brings him to MD appts. she is looking for a lift reclinier for herself and is calling a medical supply story she is familiar with. her son will e there to help her husb and they have oneil RN 8 hrs a day x 5 days.
[2023-12-15 17:37] LABS: Glucose - Point of Care 117 mg/dl (70-99)
[2023-12-15] MEDS: LIPITOR 20 MG PO (17:42)
[2023-12-15] MEDS: NOVOLOG FLEXPEN SC (17:42)
[2023-12-15] MEDS: GLUCOPHAGE 500 MG PO (17:42)
[2023-12-15] MEDS: TYLENOL 650 MG PO (17:49)
[2023-12-15] MEDS: PLAQUENIL 200 MG PO (20:19)
--- NOTE | 2023-12-15 21:00 | PTCARENOTE ---
Assumed pt care. Walking rounds completed with previous RN. Pt OOB in chair at time of assessment. AAO x 4, reports mild sternal pain/discomfort with inspiration - stated wanted to refrain from taking narcotics. Pain management reviewed with pt. Pt
on RA, POX 94%, reports IS to 1250, CBD encouraged, reports productive cough. Posterior BS clear/diminished in B/L bases, denies HER. Pt in NSR on monitor with ST on ambulation. Epicardial v-wire present & insulted. Generalized trace edema. Pulses
weakly palpable. Denies CP. Pt tolerating activity, walking to the bathroom independently - stand-by assistance provided. BS audible, good appetite, passing flatus. Voiding without issue, chronic stress incontinence with pad use. Procedural sites
intact. PIV present & maintained. TESFAYE Wilson present & patent. See JUL. PM care provided - CHG cloth bath performed. Pt assisted into bed with minimal assistance.
[2023-12-15] MEDS: ZETIA 10 MG PO (23:15)
[2023-12-15] MEDS: NSS IV (23:25)
[2023-12-16] VITALS (9 sets, daily range): BP systolic 100–110; BP diastolic 56–82; PULSE 100; O2SAT 95–96; BMI 32.8
--- NOTE | 2023-12-16 00:26 | W.PN.CT ---
Today's Communication / Plan
-
-pod #4
-no issues overnight, NSR, tolerating BB
-Appreciate DM mgt recs, increased metformin
-follow K (hx of hyperkalemia, on Lokelma at home)
-V-pw (off)
-current meds (ASA, Plavix, Lipitor, Zetia, Lopressor 25 mg, Pepcid)
-resumed Plaquenil and apremilast
-encourage IS/OOB/ambulate
Assessment / Plan
-
-s/p off-pump CABG x1 (Ao-svg-Rca); L EVH on 12/12/[address] Sorensen, pod #4
- Intraop Sharif with preserved EF pre and post revascularization
-NSTEMI with 90% prox RCA stenosis. PCI was unsuccessful and complicated by a flow-limiting dissection. Pt was stabilized with IABP placement, iv Nitro, iv Heparin and sent for urgent CABG on 12/12/23
-LVEF nl 60-65%, no significant valvular dz
-DM II (latest HgA1c was 6.7)
-HTN
-HLD (tolerated 20 mg Atorvastatin, didn't tolerate higher doses of Atorvastatin. Last LDL was 78)
-Chronic Hyperkalemia- on Lokelma 5 grams on Fri, Fri, and Friday
-CVA in 2020 with resolved L hemiparesis, on daily Plavix since. Pt received 75 mg of Plavix on 12/12/23
-Mixed autoimmune dz
-Psoriatic arthritis
-Former smoker, quit 1985
-R carpal tunnel surgery
-Hx sinus surgery
-GERD
-Acute postop blood loss anemia - stable, no transfusion
-Acute postop coagulopathy - s/p 2 unit platelets
-Acute postop metabolic acidosis
-Acute postop atelectasis
-Acute postop hypovolemia with subsequent hypervolemia
Subjective
Procedure
-s/p off-pump CABG x1 (Ao-svg-Rca); L EVH on 12/12/[address] Sorensen
-
Date of Service: December 16, 2023
Objective Data
-
PT 16.6 Sec (11.4-14.6) H 12/13/23 01:53
INR 1.36 12/13/23 01:53
APTT 29.5 Sec (23.4-35.0) 12/13/23 01:53
Vital Signs
Vital Signs
Temp Pulse Resp BP Pulse Ox
98.2 F 91 18 122/66 93
12/15/23 23:21 12/15/23 23:15 12/15/23 23:21 12/15/23 23:15 12/15/23 23:21
CT Intake/Output/Weight
12/15/23 12/15/23 12/16/23
06:59 18:59 06:59
Intake Total 428 / 439.6 134 / 554 420 / 554
Output Total 1250 / 1800 550 / 1800
Balance 428 / 409.6 -1116 / -1246 -130 / -1246
SaO2: 93
Physical Exam
-
General: Awake, Oriented and AOx3
Cardiovascular: Regular rate & rhythm, No Murmurs and No Rub
Respiratory: Clear and Equal
Sternum: Stable
Incision: Clean, Dry and Dressing Intact
Extremities: Edema +1 and No Erythema
Data Reviewed
-
Lab Results: Results Reviewed
Medications: Active Meds Reviewed
Chest X-Ray: Report Reviewed
ECG: Report Reviewed
[2023-12-16 05:22] LABS: Hematocrit 27.9 % (37.0-47.0); Hemoglobin 9.2 g/dL (12.0-16.0); Mean Corpuscular Hgb 29.2 pg (27.0-31.0); Mean Corpuscular Volume 88.6 fL (81.0-99.0); Mean Platelet Volume 10.3 fL (7.4-10.4); Platelet Count 150 10^3/uL (130-400); Red Blood Cell Count 3.15 10^6/uL (4.20-5.40); Red Cell Dist. Width 14.4 % (11.5-14.5); White Blood Cell Count 6.3 10^3/uL (4.8-10.8)
--- NOTE | 2023-12-16 05:33 | PTCARENOTE ---
Pt ambulated to BR, 700 mL voided. Weight obtained on standing scale. VSS. Assisted into bed. Labs drawn & sent. RIJ Cordis removed without issue. No other changes.
[2023-12-16 05:45] LABS: Blood Urea Nitrogen 24 mg/dl (7-17); Calcium 8.6 mg/dl (8.4-10.2); Carbon Dioxide 27 mmol/L (22-30); Chloride 105 mmol/L (98-107); Estimated Creatinine Clearance 66 ml/min; Glucose 112 mg/dl (70-99); Magnesium 2.3 mg/dl (1.6-2.3); Potassium 4.9 mmol/L (3.5-5.1); Sodium 135 mmol/L (135-145); eGFR > 60.00
[2023-12-16 06:14] LABS: TSH 3.81 uIU/ml (0.47-4.68)
[2023-12-16 07:42] LABS: Glucose - Point of Care 141 mg/dl (70-99)
--- NOTE | 2023-12-16 08:02 | PN.DE.MGMTRT ---
Addendum entered and electronically signed by Daniela Colon NP 12/16/23 11:30:
Discussed 3am glucose with patients nurse.
Original Note:
Insulin Management
- -
12/16/2023: Diabetes Management Consult Follow up
Patient admitted from [facility] with acute chest pain, noted for NSTEMI with 90% prox RCA stenosis. PCI was unsuccessful and complicated by a flow-limiting dissection. Pt was stabilized with IABP placement, IV Nitro, IV Heparin and was
transferred to [facility] for urgent CABG. Patient is now POD #4 s/p CABG x1. PMH: HTN, HLD, T2DM.
Pt is supposed to take Metformin 500mg BID, but reports that she was taking 500mg in AM and 250 in PM due to recurrent episodes of Hypoglycemia. She reports that she is struggling with her diet and finds herself not eating enough carbs especially at
diner time. Has a working meter, monitors once a day.
A1C 6.7%, Cr 0.9, eGFR >60. Discussed SGLT2 therapy and pt declined stating that she has chronic hx of recurrent UTIs/yeast infections due to a Neurogenic bladder with urinary incontinence. Pt states that she wears depends and that those meds will
put increase her risk for recurrent UTI and yeast infections.
Pt awake, A/O x3, sitting up in chair, doing well, offers no complaints, able to discuss Diabetes Management.
Was managed on Critical care Glycemic protocol x48 hrs post op.
Transitioned from glycemic protocol insulin infusion 12/14.
Current regimen Metformin 1000 mg in AM and 500 mg in PM with low corrective insulin. Glucose 117 to 134 pre meal, fasting this AM 112 venous. Will make no change to current regimen.
Patient concerned that her glucose drops too low overnight, will obtain 3AM glucose.
Discussed outpatient Diabetes classes, provided flyer and encouraged pt to call and register as she will benefit from getting a meal plan, getting more details of micronutrients and carb counting.
Diabetes History
- -
Type of Diabetes: 2
Pre-Admission Diabetes Regimen
12/16/23
05:10
Creatinine 0.9
Lab Results
Hemoglobin A1c 6.7 % (4.0-5.6) H 12/13/23 05:40
Insulin Pump Settings
IP Diabetes Regimen
12/15/23 12/15/23 12/15/23
08:11 08:25 10:52
Glucose
POC Glucose 110 H 115 H 147 H
12/15/23 12/15/23 12/16/23
12:19 17:34 05:10
Glucose 112 H
POC Glucose 131 H 117 H
12/16/23
07:41
Glucose
POC Glucose 141 H
Meal type: Dinner
Meal type: Breakfast
Amount consumed: 100%
Patient Education
--- NOTE | 2023-12-16 08:08 | PTCARENOTE ---
pt received from outgoing RN, pt oob in a chair, aaox4, vss, ST, RA, no central line, incision cdi, Vwire insulated, AM labs wnl, morning BS completed.
[2023-12-16] MEDS: TYLENOL PO ×2 (08:31→14:55)
[2023-12-16] MEDS: NOVOLOG FLEXPEN SC (08:32)
[2023-12-16] MEDS: LOW STRENGTH ASPIRIN 81 MG PO (08:49)
[2023-12-16] MEDS: DULCOLAX 10 MG PO (08:49)
[2023-12-16] MEDS: TYLENOL 1000 MG PO ×2 (08:49→22:06)
[2023-12-16] MEDS: NEURONTIN 100 MG PO ×3 (08:49→22:06)
[2023-12-16] MEDS: SENOKOT-S 1 TABLET PO (08:49)
[2023-12-16] MEDS: MAGNESIUM OXIDE 500 MG PO ×2 (08:49→20:10)
[2023-12-16] MEDS: PLAVIX 75 MG PO (08:49)
[2023-12-16] MEDS: GLUCOPHAGE 1000 MG PO (08:49)
[2023-12-16] MEDS: PLAQUENIL 200 MG PO ×2 (08:49→20:10)
[2023-12-16] MEDS: PEPCID 20 MG PO ×2 (08:50→20:10)
[2023-12-16] MEDS: LIDOCAINE 4% PATCH TOPICAL (08:50)
[2023-12-16] MEDS: LOPRESSOR 50 MG PO ×2 (08:50→18:10)
[2023-12-16] MEDS: BACTROBAN 2% OINTMENT 1 APPLIC NASAL (08:50)
[2023-12-16 12:02] LABS: Glucose - Point of Care 86 mg/dl (70-99)
--- NOTE | 2023-12-16 12:05 | PTCARENOTE ---
Pt reassessment unchanged from previous, aaox4, ra, nsr, no central line, PIV, oob in chair, ambulating with cardiac rehab and nursing staff, pain management, insulated wire.
[2023-12-16] MEDS: NON-FORMULARY ITEM PO (14:14)
[2023-12-16] MEDS: LOKELMA 5 GRAM PO (14:55)
--- NOTE | 2023-12-16 15:40 | W.PN.CD ---
Today's Communication / Plan
-
Stopping atorvastatin and Zetia
Beginning rosuvastatin 20 mg daily-goal LDL less than 70 and ideally 55
Impression / Plan
-
BACKGROUND: 63F transferred for emergent CABG. She had an NSTEMI with unsuccessful PCI due to anatomic reasons with dissection & IABP was placed prior to transfer. She was on clopidogrel for questionable CVA.
IMPRESSION/PLAN:
NSTEMI S/P CABG (Ao-SVG-RCA) by Dr Sorensen on
-EKG without inferior injury pattern
-CHRISTIAN with preserved pre and post LVEF
-Quite cranky postop day #4
HLD
did not tolerate doses greater than 20mg of atorvastatin, LDL > 70
rosuvastatin 20mg should be started-will do that now and stop both Lipitor and Zetia
Type II DM (Hgba1c 6.7)
Chronic hyperkalemia on [facility]
Former smoker, continued cessation recommended
Possible home tomorrow
SUBJECTIVE:
Cranky but without chest pain, shortness of breath, dizziness.
Physical Exam
Vital Signs/Labs
Vital Signs
Temp Pulse Resp BP Pulse Ox
98.3 F 84 16 107/64 99
12/16/23 12:02 12/16/23 12:02 12/16/23 12:02 12/16/23 12:02 12/16/23 12:02
12/15/23 12/16/23 12/17/23
06:59 06:59 06:59
Actual Weight 189 lb 9.561 oz 190 lb 11.198 oz
12/16/23 05:10
12/16/23 05:10
PT 16.6 Sec (11.4-14.6) H 12/13/23 01:53
INR 1.36 12/13/23 01:53
APTT 29.5 Sec (23.4-35.0) 12/13/23 01:53
Magnesium 2.3 mg/dl (1.6-2.3) 12/16/23 05:10
TSH 3.81 uIU/ml (0.47-4.68) 12/16/23 05:10
Physical Exam
Constitutional: No acute distress and Comfortable
Cardiovascular: Rhythm & rate is regular, S1S2 is normal and Murmur/rub/gallop absent
Respiratory: Respiratory effort normal, Lungs clear to auscul. and Wheeze Absent
GI: Soft
Neuro/Psych: AO x 3 and Motor deficits absent
Data Reviewed
-
Date of Service: December 16, 2023
--- NOTE | 2023-12-16 15:54 | PTCARENOTE ---
pt reassessment unchanged from previous, vss, nsr, ra, pain management, ambulating, PIV no central line. Pt has moved her bowels, does not have to do stairs according to cardiac rehab.
[2023-12-16 16:47] LABS: Glucose - Point of Care 128 mg/dl (70-99)
[2023-12-16] MEDS: CRESTOR 20 MG PO (17:03)
[2023-12-16] MEDS: TYLENOL 650 MG PO (17:03)
[2023-12-16] MEDS: GLUCOPHAGE 500 MG PO (17:03)
[2023-12-16] MEDS: SENOKOT-S PO (19:49)
[2023-12-16] MEDS: NON-FORMULARY ITEM 30 MG PO (20:10)
--- NOTE | 2023-12-16 20:19 | PTCARENOTE ---
Assumed pt care. Walking rounds completed with previous RN. Pt AAO x 4, denies pain/discomfort at time of assessment. Pt on RA, POX 99%, posterior BS clear/equal, denies SOB, intermittent productive cough. NSR on monitor, ST in 120's during
activity, heart tones normal, distal pulses weakly palpable, no edema noted. Epicardial v-wire present & insulated. Pt up ad nora independently in room. BS audible, good appetite, reports loose BMs throughout day. Voiding without issue, chronic
stress incontinence. Procedural sites CDI. PIV x 1 present & patent. Pt performed PM care independently in bathroom. Assisted into bed with minimal assist. See MAR.
[2023-12-16] MEDS: NSS IV (22:07)
[2023-12-16 23:27] LABS: Glucose - Point of Care 119 mg/dl (70-99)
--- NOTE | 2023-12-16 23:31 | PTCARENOTE ---
VS obtained. Pt assisted to ambulated to BR. No other changes, reports resting comfortably.
[2023-12-17] VITALS (7 sets, daily range): BP systolic 91–121; BP diastolic 55–71; PULSE 74; O2SAT 98; BMI 32.2
[2023-12-17 03:13] LABS: Glucose - Point of Care 132 mg/dl (70-99)
[2023-12-17] MEDS: ROXICODONE 2.5 MG PO (03:19)
--- NOTE | 2023-12-17 04:14 | W.PN.CT ---
Addendum entered and electronically signed by KALANI Roth 12/18/23 15:07:
CDI QUERY RESPONSE
Acute postop pulmonary insufficiency (following surgery)
Original Note:
Documented by User: Leona Clarke PA-C 12/17/23 05:04
Today's Communication / Plan
-
-pod #5
-no issues overnight, ambulates without issues
-had Dulcolax on 12/15 with some loose stools afterwards (none overnight)
-pt was switched from Lipitor to Crestor 12/15
-Lopressor increased
-Glucophage increased
-current meds (ASA, Plavix, Crestor 20, Lopressor 50 mg bid, Pepcid bid, Plaquenil, Otezla)
-will need pw cut prior to discharge
-encourage IS, ambulate
-d/c home soon
Assessment / Plan
-
-s/p off-pump CABG x1 (Ao-svg-Rca); L EVH on 12/12/[address] Sorensen, pod #5
- Intraop Sharif with preserved EF pre and post revascularization
-NSTEMI with 90% prox RCA stenosis. PCI was unsuccessful and complicated by a flow-limiting dissection. Pt was stabilized with IABP placement, iv Nitro, iv Heparin and sent for urgent CABG on 12/12/23
-LVEF nl 60-65%, no significant valvular dz
-DM II (latest HgA1c was 6.7)
-HTN
-HLD (tolerated 20 mg Atorvastatin, didn't tolerate higher doses of Atorvastatin. Last LDL was 78)- started on Crestor this admission
-Chronic Hyperkalemia- on Lokelma 5 grams on Fri, Fri, and Friday
-CVA in 2020 with resolved L hemiparesis, on daily Plavix since. Pt received 75 mg of Plavix on 12/12/23
-Mixed autoimmune dz
-Psoriatic arthritis
-Former smoker, quit 1985
-R carpal tunnel surgery
-Hx sinus surgery
-GERD
-Chronic vertigo
-Acute postop blood loss anemia - stable, no transfusion
-Acute postop coagulopathy - s/p 2 unit platelets
-Acute postop metabolic acidosis- resolved
-Acute postop atelectasis
-Acute postop hypovolemia with subsequent hypervolemia
Discussed patient care with: Nursing and Care Team
Subjective
Procedure
-s/p off-pump CABG x1 (Ao-svg-Rca); L EVH on 12/12/[address] Sorensen
-
Date of Service: December 17, 2023
Objective Data
-
Lab Results
12/16/23 05:10
12/16/23 05:10
PT 16.6 Sec (11.4-14.6) H 12/13/23 01:53
INR 1.36 12/13/23 01:53
APTT 29.5 Sec (23.4-35.0) 12/13/23 01:53
Vital Signs
Vital Signs
Temp Pulse Resp BP Pulse Ox
98.0 F 92 18 107/65 94
12/17/23 03:19 12/17/23 03:12 12/16/23 23:36 12/17/23 03:12 12/17/23 03:19
CT Intake/Output/Weight
12/16/23 12/16/23 12/17/23
06:59 18:59 06:59
Intake Total 420 / 554 365 / 765 400 / 765
Output Total 1250 / 2500 700 / 700
Balance -830 / -1946 -335 / 65 400 / 65
SaO2: 94
Physical Exam
-
General: Awake and AOx3
Cardiovascular: Regular rate & rhythm, No Murmurs and No Rub
Respiratory: Clear
Sternum: Stable
Incision: Clean, Dry and Intact
Extremities: No Edema (1+ DPs b/l)
Data Reviewed
-
Lab Results: Results Reviewed
Medications: Active Meds Reviewed
Chest X-Ray: Report Reviewed
ECG: Report Reviewed and Image Reviewed

Documented by User: KALANI Roth 12/17/23 12:57
Assessment / Plan
-
-s/p off-pump CABG x1 (Ao-svg-Rca); L EVH on 12/12/[address] Sorensen, pod #5
- Intraop Sharif with preserved EF pre and post revascularization
-NSTEMI with 90% prox RCA stenosis. PCI was unsuccessful and complicated by a flow-limiting dissection. Pt was stabilized with IABP placement, iv Nitro, iv Heparin and sent for urgent CABG on 12/12/23
-LVEF nl 60-65%, no significant valvular dz
-DM II (latest HgA1c was 6.7)
-HTN
-HLD (tolerated 20 mg Atorvastatin, didn't tolerate higher doses of Atorvastatin. Last LDL was 78)- started on Crestor this admission
-Chronic Hyperkalemia- on Lokelma 5 grams on Fri, Fri, and Friday
-CVA in 2020 with resolved L hemiparesis, on daily Plavix since. Pt received 75 mg of Plavix on 12/12/23
-Mixed autoimmune dz
-Psoriatic arthritis
-Former smoker, quit 1985
-R carpal tunnel surgery
-Hx sinus surgery
-GERD
-Chronic vertigo
-Acute postop blood loss anemia - stable, no transfusion
-Acute postop coagulopathy - s/p 2 unit platelets
-Acute postop metabolic acidosis- resolved
-Acute postop atelectasis
-Acute postop hypovolemia with subsequent hypervolemia
-Acute postop pulmonary insufficiency (following surgery)
--- NOTE | 2023-12-17 05:09 | PTCARENOTE ---
VS obtained. Pt ambulated to bathroom to void. Weight obtained. PRN Margo administered for pain - see MAR. No other changes. Pt slept throughout night.
[2023-12-17] MEDS: TYLENOL 1000 MG PO (07:16)
--- NOTE | 2023-12-17 07:57 | W.DCSUMMARY ---
Discharge Summary
Discharge Data
Date of Admission: 12/12/23
Date of Discharge: 12/17/23
-
Pending Results: No
Hospital Course
Primary care physician: Rafi Levine
Outpatient head golf coach: Omega Melendez
Inpatient consultants: [facility] Card[facility]
Procedures:
1. Off pump CABG x 1
Primary Diagnosis:
1. NSTEMI
Secondary Diagnoses:
1. iatrogenic dissection
HPI: 63-year-old female was admitted to [facility] on 12/11/24 for evaluation of left sided chest pain. Patient R/I for NSTEMI with high-sensitivity troponin trends 35->262. Patient has PMH significant for hypertension, hyperlipidemia,
type 2 diabetes (A1c 6.7) CVA in 2020 (no residual deficit)on chronic Plavix, GERD, hyperkalemia, vertigo, urinary incontinence/neurogenic bladder and mixed autoimmune disease. Of note, patient could not tolerate higher dose of Atorvastatin and has
been on 20 mg daily.
Hospital course: Cath 12/12/23 @ 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 There was hazy 90% stenosis of proximal RCA with appearance of plaque rupture, which was the culprit of pt's
NSTEMI. Unfortunately, PCI was unsuccessful due to anatomic reasons and a flow-limiting dissection flap propagated following attempted intervention, which was unable to be recrossed by a wire. Pt was stabilized with IABP, IV Nitro, Heparin and
transferred emergently to for CABG. Patient underwent off-pump CABG x 1 with saphenous vein graft to RCA by Dr. Francisco Jones on 12/12/2023. She required 1 unit of platelets intraoperatively and returned to CVICU on Levophed, Precedex, and
insulin. She intra-aortic balloon pump was removed on postoperative day #1 and patient was weaned off Levophed. Patient was continued on aspirin, Plavix, and beta-deep. Chest tubes were removed on postoperative day #2. Patient was evaluated
by the diabetic nurse practitioners and metformin dose was increased. SGLT2 therapy was recommended and pt declined stating that she has chronic hx of recurrent UTIs/yeast infections due to a Neurogenic bladder with urinary incontinence. Patient's
immunologic's were resumed on postoperative day #3 per discussion with surgeon. Postoperative day #4, patient was noted to be in sinus tachycardia with rates in the 130s during ambulation. Lopressor dose was increased to 50 mg twice daily. A
two-view chest x-ray was stable without pneumothorax or pleural effusion. Due to intolerance of escalating Lipitor dose in the past, Crestor was initiated by cardiology. Postoperative day #5, temporary epicardial ventricular pacing wires were
clipped to skin level and patient able to shower. The 3 AM glucose was stable at 131 with current Metformin therapy. Patient was instructed to check blood sugars at home twice daily. Per cardiology, patient will continue on metoprolol (not home
carvedilol) for A-fib prevention and improved BP control.
Home medication changes:
Stop amlodipine due to improved blood pressure control on increased dose of beta-deep
Stop Atorvastatin>changed to Rosuvastatin
Stop carvedilol> changed to metoprolol
Metformin dose increased to 1000 mg daily +500 mg every afternoon
Discharge Plan
-
Patient Disposition: Home (Routine Discharge)
Discharge Diagnosis/Procedures: dissected RCA/CABG
Condition: Good
Diet: Low Cholesterol, Low Sodium and Diabetic, Carb Controlled
Activity: No strenuous activity
Driving Restrictions: Not until seen by your Dr
Bathing Restrictions: OK to Shower
Other Services: Cardiac Rehab
Specialty Instructions: Weigh Daily- Call MD for wt gain/loss 3 lbs overnight/5 lbs in 1 week
Referrals:
CT Transitional Care Nurse [Outside]
(
The Cardiothoracic Transitional Care Nurse will call you to set up a visit in 1-2 days.)
Nasra Chisholm MD [Active] - (rec eval for VARGAS in sleep clinic given comorbidities)
Francisco Sorensen MD [Active] - 01/12/24 9:45 am
Bora Roque MD [Active] - 02/04/24 2:40 pm
UNKNOWN - PT NOT,INTERVIEWE [Family Provider] -
Prescriptions:
New
acetaminophen 325 mg Tablet
650 mg PO Q4HPRN PRN (Reason: mild pain,headache,temp >101F ) Qty: 0 0RF
aspirin 81 mg Tablet,Chewable
81 mg PO DAILY Qty: 0 0RF
cyclobenzaprine 10 mg Tablet
5 mg PO Q8HPRN PRN (Reason: muscle spasm) Qty: 20 0RF
metformin 500 mg Tablet
500 mg PO DAILY@1700 Qty: 30 1RF
metformin 1,000 mg Tablet
1,000 mg PO DAILY@0800 Qty: 30 1RF
gabapentin 100 mg Capsule
100 mg PO TID Qty: 30 0RF
rosuvastatin 20 mg Tablet
20 mg PO QPM Qty: 30 1RF
oxycodone 5 mg Tablet
2.5 mg PO Q4HPRN PRN (Reason: severe pain) Qty: 20 0RF
metoprolol succinate [Toprol XL] 100 mg tablet extended release 24 hr
100 mg PO DAILY Qty: 30 1RF
Continued
clopidogrel 75 mg Tablet
75 mg PO DAILY
famotidine 20 mg Tablet
20 mg PO BID
Lokelma 5 gram Powder In Packet
PO QMWF
Rx Instructions:
5 g orally on Friday, Friday and Friday
Otezla 30 mg Tablet
30 mg PO BID
cholecalciferol (vitamin D3) [Vitamin D3] 25 mcg (1,000 unit) Capsule
25 mcg PO DAILY
hydroxychloroquine 200 mg Tablet
200 mg PO BID Qty: 0 0RF
Discontinued
amlodipine 10 mg Tablet
10 mg PO DAILY
atorvastatin 20 mg Tablet
20 mg PO HS
carvedilol [Coreg] 12.5 mg Tablet
12.5 mg PO BID
metformin 500 mg Tablet
500 mg PO BID
Discharge Orders:
Discharge Patient (As Directed); Ordered 12/17/23
Ordered By: Tasneem Barney
Care Plan Goals
Care Plan Goals:
Problem: Readiness for enhanced knowledge related to diagnosis and treatment plan
Goal: Understand your diagnosis and treatment plan needs, including medications if applicable.
Instructions: Know your diagnosis, underlying causes and treatment plan options, including medications if applicable. Consult with your health care team to learn about your diagnosis and treatment plan, including medications if applicable.
Discharge Date and Time
Print Language: M[place]ENEGR[place]
--- NOTE | 2023-12-17 08:00 | PTCARENOTE ---
pt received from previous RN, oriented, OOB in chair. SR/ST on the monitor, HR 80-100s. V-wire insulated. SBP 90s. weakly palpable pulses. pt on RA, 97% POX. lungs clear. IS encouraged. occasional productive cough. pt abdomen s/n, denies n/v. diet
tolerated. voids. pt states last BM around midnight overnight. sternal incision ALDAIR, approximated. chest tube site c/d/i. R groin c/d/i. L groin c/d/i. SVG site intact. PIV. see worklist for VS, I&O, and assessment.
[2023-12-17 08:04] LABS: Glucose - Point of Care 131 mg/dl (70-99)
--- NOTE | 2023-12-17 08:29 | PN.DE.MGMTRT ---
Insulin Management
- -
12/17/2023: Diabetes Management Consult Follow up
Patient admitted from [facility] with acute chest pain, noted for NSTEMI with 90% prox RCA stenosis. PCI was unsuccessful and complicated by a flow-limiting dissection. Pt was stabilized with IABP placement, IV Nitro, IV Heparin and was
transferred to [facility] for urgent CABG. Patient is now POD #5 s/p CABG x1. PMH: HTN, HLD, T2DM.
Has a working meter, monitors once a day. Recommended she test in pattern provided for one week and report results to primary doctor.
A1C 6.7%, Cr 0.9, eGFR >60. Discussed SGLT2 therapy and pt declined stating that she has chronic hx of recurrent UTIs/yeast infections due to a Neurogenic bladder with urinary incontinence. Pt states that she wears depends and that those meds will
put increase her risk for recurrent UTI and yeast infections.
Pt awake, A/O x3, sitting up in chair, doing well, offers no complaints, able to discuss Diabetes Management. Patient saved her dietary slips and requested help with how much food/carbs are appropriate at each meal. Reviewed at length, patient
verbalized understanding.
Was managed on Critical care Glycemic protocol x48 hrs post op.
Transitioned from glycemic protocol insulin infusion 12/14.
Current regimen Metformin 1000 mg in AM and 500 mg in PM with low corrective insulin. Glucose 86 pre lunch to 128 pre dinner pre meal, 3AM glucose 132, fasting this AM 131. Will make no change to current regimen.
Discussed outpatient Diabetes classes, provided flyer and encouraged pt to call and register as she will benefit from getting a meal plan, getting more details of micronutrients and carb counting.
Diabetes History
- -
Type of Diabetes: 2
Pre-Admission Diabetes Regimen
Lab Results
Hemoglobin A1c 6.7 % (4.0-5.6) H 12/13/23 05:40
Insulin Pump Settings
IP Diabetes Regimen
12/16/23 12/16/23 12/16/23
12:00 16:46 23:25
POC Glucose 86 128 H 119 H
12/17/23 12/17/23
03:10 08:02
POC Glucose 132 H 131 H
Meal type: Dinner
Amount consumed: 100%
Patient Education
[2023-12-17] MEDS: NON-FORMULARY ITEM 30 MG PO (08:44)
[2023-12-17] MEDS: NEURONTIN 100 MG PO (08:44)
[2023-12-17] MEDS: MAGNESIUM OXIDE 500 MG PO (08:44)
[2023-12-17] MEDS: PEPCID 20 MG PO (08:44)
[2023-12-17] MEDS: LOW STRENGTH ASPIRIN 81 MG PO (08:45)
[2023-12-17] MEDS: PLAVIX 75 MG PO (08:45)
[2023-12-17] MEDS: PLAQUENIL 200 MG PO (08:45)
[2023-12-17] MEDS: SENOKOT-S PO (08:45)
[2023-12-17] MEDS: GLUCOPHAGE 1000 MG PO (08:45)
[2023-12-17] MEDS: LIDOCAINE 4% PATCH TOPICAL (08:45)
[2023-12-17] MEDS: LOPRESSOR 50 MG PO (08:52)
--- NOTE | 2023-12-17 09:40 | W.PN.UPDATE ---
Update Note
Progress Note Update
Did not require pacing. Rhythm stable. Site cleansed, suture removed and 2 epicardial ventricular wires clipped to skin level
--- NOTE | 2023-12-17 09:58 | CM ---
pt for dc to hoe today. her brother in law will be picking her up. she reains agreeable to a f/u visit from the ct transitional care nurse
--- NOTE | 2023-12-17 11:20 | PN.CDI ---
CDI
- -
CDI:
Physician Documentation Request
Admit Date: 12/12/23 21:47
Dear Tasneem URIARTE,
Patient admitted with NSTEMI s/p emergent coronary artery bypass graft x1.
12/12 CT note, 'extubated uneventfully at 6:25 am.'
12/12 PCN, 'Pt helped to BSC to attempt to void. Unable to void. Pt helped back to bed. Sats in bed were 88-89% on 2L/NC. CDB and IS done. IS peak 1000 mls. O2 increased to 5L/NC. Sats up to 95%.
Oxygen use documented below:
Selected Entries
12/13/23
08:00 12/13/23
15:19 12/13/23
20:00
Nasal Cannula flow liters per minute 6 2 2
12/13/23
20:00 12/13/23
20:46 12/14/23
00:00
Nasal Cannula flow liters per minute 2 5 5
12/14/23
02:00 12/14/23
04:00 12/14/23
08:00
Nasal Cannula flow liters per minute 5 5 2
Please clarify which of the following accurately represents the patient's respiratory status following surgery:
Acute postop pulmonary insufficiency (following surgery)
Hypoxia
Other
Additional information for Pulmonary Insufficiency:
Consider when patients require halfway oxygen therapy postoperatively
Weaned off oxygen initially then requiring supplemental oxygen
No other definitive diagnosis to support the need for oxygen (COPD exac, CHF etc.)
Unable to wean from vent
When criteria for respiratory failure not present
May extend stay or require additional resources; may need home O2
Use of terms such as suspected, likely, concern for, or probable (associated with a specific diagnosis that is being evaluated, monitored, or treated as if it exists) are acceptable and can be coded in the inpatient setting, when documented at the
time of discharge.
Thank you,
Leelee MINORN,RN,CCDS
CDI Specialist
Available via [place] text
Please use your independent medical judgment in providing your response.
[2023-12-17 11:35] LABS: Glucose - Point of Care 85 mg/dl (70-99)
--- NOTE | 2023-12-17 12:30 | PTCARENOTE ---
pt VSS, no changes in assessment. discharge instructions reviewed w/ patient, home meds reviewed. IV and tele dc'd. pt showered, dressed self. home meds returned to patient from cart. pt discharged home w/ MONIKA, pt left w/ all belongings via
wheelchair.
== END 2023-12-17 12:50 | disposition home or self-care (01) | DRG 235 ==
LOC: CVICU 21:47
PROVIDERS: Anesthesiology; Internal Medicine Cardiovascular Disease; Nurse Practitioner; Physician Assistant Medical; ADMITTING PHYSICIAN Thoracic Surgery (Cardiothoracic Vascular Surgery); OTHER PHYSICIAN Internal Medicine Critical Care Medicine
PROC: 021009W Bypass Coronary Artery, One Artery from Aorta with Autologous Venous Tissue, Open Approach (ICD-10-PCS; 2023-12-12)
PROC: B24BZZ4 Ultrasonography of Heart with Aorta, Transesophageal (ICD-10-PCS; 2023-12-12)
PROC: 06BQ4ZZ Excision of Left Saphenous Vein, Percutaneous Endoscopic Approach (ICD-10-PCS; 2023-12-12)
PROC: 30233R1 Transfusion of Nonautologous Platelets into Peripheral Vein, Percutaneous Approach (ICD-10-PCS; 2023-12-13)
DX: I21.4 Non-ST elevation (NSTEMI) myocardial infarction (principal); I25.42 Coronary artery dissection; J95.1 Acute pulmonary insufficiency following thoracic surgery; I69.354 Hemiplegia and hemiparesis following cerebral infarction affecting left non-dominant side; M35.89 Other specified systemic involvement of connective tissue; D68.8 Other specified coagulation defects; D62 Acute posthemorrhagic anemia; E87.20 Acidosis, unspecified; J98.11 Atelectasis; Y83.2 Surgical operation with anastomosis, bypass or graft as the cause of abnormal reaction of the patient, or of later complication, without mention of misadventure at the time of the procedure; I10 Essential (primary) hypertension; E87.5 Hyperkalemia; E78.00 Pure hypercholesterolemia, unspecified; E11.9 Type 2 diabetes mellitus without complications; K21.9 Gastro-esophageal reflux disease without esophagitis; L40.50 Arthropathic psoriasis, unspecified; I25.10 Atherosclerotic heart disease of native coronary artery without angina pectoris; G89.29 Other chronic pain; E66.9 Obesity, unspecified; N39.498 Other specified urinary incontinence; N31.9 Neuromuscular dysfunction of bladder, unspecified; E86.1 Hypovolemia; E87.70 Fluid overload, unspecified; R42 Dizziness and giddiness; Z68.32 Body mass index [BMI] 32.0-32.9, adult; Z79.02 Long term (current) use of antithrombotics/antiplatelets; Z79.84 Long term (current) use of oral hypoglycemic drugs; Z79.899 Other long term (current) drug therapy; Z82.49 Family history of ischemic heart disease and other diseases of the circulatory system; Z87.891 Personal history of nicotine dependence
CPT/HCPCS: 71045; 71046; 80048; 81003; 81015; 82330; 82565; 82805; 82810; 82947; 82962; 83036; 83735; 84132; 84302; 84443; 84484; 84520; 85014; 85018; 85027; 85049; 85610; 85730; 86850; 86900; 86901; 86920; 93005; 93312; 93320; 93325; 94002; P9045; P9073

== ENCOUNTER 2024-01-26 14:23 | Inpatient (IN) | payer MEDICARE, BC, SELFPAY ==
[2024-01-26] VITALS (8 sets, daily range): BP systolic 119–132; BP diastolic 69–89; BMI 31.4
--- NOTE | 2024-01-26 10:31 | W.PN.CARDCBS ---
Addendum entered and electronically signed by Julien iRvas MD 01/26/24 14:12:
Patient seen and examined. I agree with the note below by KALANI Jack. Ms. Tripathi is a 63 year old woman with history of recent NSTEMI c/b RCA dissection requiring emergent CABGx1, now representing with jaw/neck pain similar to her prior DC,
mildly elevated troponin, newly reduced EF (30-35%) with apical hypokinesis. She was transferred here from [facility] for repeat cardiac which showed patent vein graft, healing RCA dissection, and no evidence of obstructive coronary artery disease.
Differential for her NSTEMI and newly reduced EF with apical predominant hypokinesis includes stress cardiomyopathy. She will be admitted for medical management of her heart failure and NSTEMI.
Original Note:
Today's Communication / Plan
-
Precath hydration protocol
[facility] today
Followup with Dr. Roque at d/c
Impression / Plan
-
This is the H&P summary
Full H&P scanned into chart.
PCP: Raul Levine DO
CDY: Bora Roque MD
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 Transferred to and s/p CABG x1 (Ao-VG-RCA). She did have brief
post op AFib but was stable for d/c on 12/16. She did have mild distal sternal wound drainage and finished 7 days of cephalexin with resolution. Echo at the time of NSTEMI in December with preserved EF 60%, mild inferoseptal HK.
Prior history also includes CVA on chronic plavix therapy, HTN, HLD, DM, chronic hyperkalemia, gout, vertigo.
Presented to [facility] on 01/23 with new onset left sided jaw/neck tightness, similar to her DC from December. She states she was emotionally upset/angry at the time, r/t her 's health/care at the NH. Peak HS troponin 730. Started on IV heparin and
nitropaste with symptom relief. Echo on 01/23 with moderately reduced systolic function w/EF 30-35% (down from 60% 12/2023), anteroapical/inferoapical HK, mildly dilated LA, mild MR. Currently pain free/comfortable.
Transferred today for [facility].
IMPRESSION:
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
s/p CABG x1- AO-VG-RCA (12/12/23 at w/Dr. Sorensen)
Now with NSTEMI- peak HS troponin 730.
Tx for [facility] today
DAPT w/asa, plavix
continue metoprolol xl 100/d
cardiac rehab
followup with Dr. Roque at d/c for continued cardiology care.
Distal sternal wound infection- serous drainage with open area
treated with 7 day course cephalexin- just finished on 01/21
site with some erythema but no further drainage at site
afebrile with nml WBC
HLD- intol of doses >20mg atorvastatin.
started on rosuvastatin 20mg post op and tolerating
check lipid profile
HTN- continue metoprolol, monitor trends
DM- hold metformin post cath 48h
creat 0.9/GFR>60 (12/2023)
check HgbA1C (last was 6.7 on 12/12)
Chronic hyperkalemia- K 4.7 today
continue MWF Lokelma
Prior CVA (03/2021)
remains on DAPT w/asa, plavix
Loop implant- 05/2021 with no documented arrhythmias/events since implant
Progress Note - Flight Test Supervisor
Subjective
Date of Service: January 26, 2024
[2024-01-26 12:49] LABS: Glucose - Point of Care 102 mg/dl (70-99)
[2024-01-26] MEDS: NSS 1000 IV ×2 (14:41→14:43)
[2024-01-26] MEDS: FLUSH (NSS) 1 FLUSH IV (14:42)
[2024-01-26 14:48] LABS: Glucose - Point of Care 70 mg/dl (70-99)
--- NOTE | 2024-01-26 15:10 | CM ---
priced jada at [facility]- her copay is zero dollars
--- NOTE | 2024-01-26 17:02 | CM ---
spoke to pt in room, she is prev indep, lives with her husb and son in a 1 story home with no steps to enter. she denies any dme's or dc planning needs. plan is for dc to home when medically stable
--- NOTE | 2024-01-26 17:41 | ITS.CL.CATH ---
Patient Access Coordinator - Catheterization
Cardiac Catheterization
Procedure Report:
CARDIAC CATHETERIZATION REPORT
Date of Procedure: 01/26/24
Referring: Dr. Bora Roque MD
INDICATION: NSTEMI
PROCEDURE:
1. Left heart catheterization
2. Coronary angiography
3. Bypass graft angiography
ACCESS:
6 Filipino right radial artery (unable to be accessed, small and non-pulsatile vessel)
6 Filipino right common femoral artery
CATHETERS:
1. 6 Filipino JR4 (best catheter for SVG-RPDA)
2. 6 Filipino JL3.5
HEMODYNAMIC DATA
LV 142/11 (EDP 19) mmHg
AO 141/79 (mean 105) mmHg
CORONARY ANGIOGRAPHY
Dominance: right
LM: large and normal.
LAD: gives rise to a large D1, small D2, and wraps around the apex. There is a diffuse 40% stenosis in the mid-vessel and otherwise no obstructive CAD.
LCx: gives rise to a single marginal branch before terminating in the AV groove. There is a second marginal branch supplied by an anomalous vessel arising from the right coronary cusp adjacent to the RCA and coursing anteriorly. There is no
obstructive coronary artery disease.
RCA: dominant vessel giving rise to a small RPDA and several small RPL branches. There is a 50% ostial stenosis at the site of a prior dissection.
BYPASS GRAFT ANGIOGRAPHY:
SVG-RPDA: patent and supplies antegrade flow to the RPDA.
Closure Device: Perclose x1
Radiation (mGy): 873.26
DAP (cm2.Gy): 65.6085
Fluoroscopy time (minutes): 10.5
CONCLUSIONS
1. No obstructive coronary artery disease. Patent SVG-RPDA and no obstructive disease to explain presentation.
2. Mildly elevated LV filling pressure and no aortic stenosis.
RECOMMENDATIONS:
1. Expectant management after cardiac catheterization via right femoral approach.
2. GDMT for heart failure
3. Aggressive secondary management of coronary artery disease with high intensity statin.
4. DAPT for at least 1 year.
Copy to: Dr. Bora Roque MD
Signed: Julien Rivas MD, PhD
--- NOTE | 2024-01-26 17:48 | PTCARENOTE ---
Received patient from the optical laboratory mechanic at 1415 after cardiac cath via R femoral artery. Dressing is dry and intact, with a strong pedal pulse and no signs of bleeding or hematoma. Patient maintained bedrest x 3 hours and now assisted oob to the bathroom
to void. Patient sitting oob in the chair now, call sanz in reach. SR on the monitor, VSS, no chest pain noted.
[2024-01-26 18:33] LABS: Glucose - Point of Care 167 mg/dl (70-99)
[2024-01-26] MEDS: NOVOLOG FLEXPEN-MODERATE RESISTANCE 1 UNITS SC (18:33)
[2024-01-26] MEDS: CRESTOR 20 MG PO (18:33)
[2024-01-26] MEDS: PEPCID 20 MG PO (19:48)
[2024-01-26] MEDS: PLAQUENIL 200 MG PO (19:49)
[2024-01-26] MEDS: ENTRESTO 24 MG/26 MG 1 TAB PO (19:49)
[2024-01-26] MEDS: TYLENOL 650 MG PO (21:10)
[2024-01-26 22:00] LABS: Glucose - Point of Care 151 mg/dl (70-99)
--- NOTE | 2024-01-26 22:43 | PTCARENOTE ---
Pt c/o tenderness around cath site. R groin site is c/d/i. No hematoma/bleeding noted at site w/ positive pedal pulse. Tylenol administered as ordered. Pt states relief. Currently in bed; call umu w/in reach.
[2024-01-27 02:49] VITALS: BP 100/46
[2024-01-27] MEDS: TYLENOL 650 MG PO (03:14)
[2024-01-27 03:44] LABS: Hematocrit 37.7 % (37.0-47.0); Hemoglobin 11.7 g/dL (12.0-16.0); Mean Corpuscular Hgb 27.2 pg (27.0-31.0); Mean Corpuscular Volume 87.7 fL (81.0-99.0); Mean Platelet Volume 10.5 fL (7.4-10.4); Platelet Count 225 10^3/uL (130-400); Red Cell Dist. Width 14.5 % (11.5-14.5); White Blood Cell Count 6.4 10^3/uL (4.8-10.8)
[2024-01-27 04:06] LABS: Blood Urea Nitrogen 23 mg/dl (7-17); Calcium 9.5 mg/dl (8.4-10.2); Carbon Dioxide 24 mmol/L (22-30); Chloride 107 mmol/L (98-107); Estimated Creatinine Clearance 65 ml/min; Glucose 123 mg/dl (70-99); HDL Cholesterol 61 mg/dl; LDL Cholesterol, Calculated 49 mg/dl; Potassium 4.7 mmol/L (3.5-5.1); Sodium 143 mmol/L (135-145); Total Cholesterol 127 mg/dl (50-199); Triglyceride 85 mg/dl (10-149); Very Low Density Lipoprotein 17 mg/dl (0-30); eGFR > 60.00
[2024-01-27 06:45] VITALS: BP 111/59
[2024-01-27 06:50] LABS: Glucose - Point of Care 134 mg/dl (70-99)
[2024-01-27] MEDS: PLAQUENIL 200 MG PO (07:54)
[2024-01-27] MEDS: ENTRESTO 24 MG/26 MG 1 TAB PO (07:54)
[2024-01-27] MEDS: PLAVIX 75 MG PO (07:54)
[2024-01-27] MEDS: LOW STRENGTH ASPIRIN 81 MG PO (07:54)
[2024-01-27] MEDS: PEPCID 20 MG PO (07:59)
--- NOTE | 2024-01-27 08:27 | W.PN.CD ---
Today's Communication / Plan
-
start dapa 10 mg this AM; if tolerating meds d/c this afternoon with labs end of week
Impression / Plan
-
Ms. Tripathi is a 63 year old woman with recent NSTEMI 12/12/23 at [facility] with unsuccessful PCI to RCA c/b RCA dissection, transferred emergently to for CABGx1. She presented again to [facility] 01/24/24 with recurrent symptoms of chest pain and had NSTEMI with
low level troponin elevation and newly reduced EF with apical RWMA. She was transferred to where cath 01/26/24 demonstrated patent vein graft and no new obstructive lesions.
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
s/p CABG x1- AO-VG-RCA (12/12/23 at w/Dr. Sorensen)
Now with NSTEMI- peak HS troponin 730.
Cath 01/26/24 without new obstructive lesions
cont. DAPT w/asa, plavix
continue metoprolol xl 100/d
cardiac rehab
followup with Dr. Roque at d/c for continued cardiology care
Acute systolic heart failure with newly reduced EF (30-35%) and apical RWMA
reivewed images personally; given lack of new obstructive disease and the nature of presentation (acute emotional distress), stress CM is on the differential
started Entresto low dose yesterday
start dapa 10 mg today (will also help with hyper K); discussed that she has prior history of yeast infection / UTI which she will monitor for and discontinue if she has recurrence
cont. metoprolol
additional GDMT to be titrated outpatient
Distal sternal wound infection- serous drainage with open area
treated with 7 day course cephalexin- just finished on 01/21
site with some erythema but no further drainage at site
afebrile with nml WBC
HLD- intol of doses >20mg atorvastatin.
started on rosuvastatin 20mg post op and tolerating
LDL 49
HTN- continue metoprolol, monitor trends
DM- hold metformin post cath 48h
creat 0.9/GFR>60 (12/2023)
check HgbA1C (last was 6.7 on 12/12)
Chronic hyperkalemia- K 4.7 today
continue MWF Lokelma
will monitor closely with addition of entresto
Prior CVA (03/2021)
remains on DAPT w/asa, plavix
Loop implant- 05/2021 with no documented arrhythmias/events since implant
Physical Exam
Vital Signs/Labs
Vital Signs
Temp Pulse Resp BP Pulse Ox
36.4 C 70 16 100/46 99
01/27/24 06:51 01/27/24 04:30 01/27/24 06:51 01/27/24 02:49 01/27/24 06:51
01/26/24 01/27/24 01/28/24
06:59 06:59 06:59
Actual Weight 83 kg
01/27/24 02:55
01/27/24 02:55
Triglycerides 85 mg/dl (10-149) 01/27/24 02:55
LDL Cholesterol, Calc 49 mg/dl 01/27/24 02:55
VLDL Cholesterol, Calc 17 mg/dl (0-30) 01/27/24 02:55
HDL Cholesterol 61 mg/dl 01/27/24 02:55
Physical Exam
Constitutional: No acute distress and Comfortable
Cardiovascular: Rhythm & rate is regular, Pedal edema is absent, JVD pressure is normal, Systolic murmur absent and Diastolic murmur absent
Respiratory: Respiratory effort normal, Lungs clear to auscul. and Wheeze Absent
Neuro/Psych: Alert, Oriented and AO x 3
Data Reviewed
-
Date of Service: January 27, 2024
Medical Decision Making: Reviewed Test Results
EKG: Tracing Personally Visualized and interpreted
Echo: Tracing Personally Visualized and interpreted
X-Ray/CT/US/MRI/NUC/PET: Image Personally Visualized and interpreted
Labs: Labs Reviewed by me
[2024-01-27 08:43] VITALS: BP 129/71
[2024-01-27] MEDS: TOPROL XL 100 MG PO (08:44)
[2024-01-27] MEDS: NOVOLOG FLEXPEN-MODERATE RESISTANCE SC ×2 (08:46→13:05)
[2024-01-27 09:23] LABS: Glycohemoglobin (HgbA1c) 5.9 % (4.0-5.6)
--- NOTE | 2024-01-27 09:36 | CM ---
Received consult to check on co-pay for Brett. Telephone call to [facility] who states she will have a zero co-pay. Placed the one month free coupon in her red discharge folder.
--- NOTE | 2024-01-27 10:11 | W.DS.TRANS ---
DC Summary - [employer]
-
Discharge Instructions:
Discharge Diagnosis/Procedures NSTEMI, Cardiomyopathy, s/p cardiac
catheterization
Diet Low Cholesterol,Diabetic, Carb Controlled
Driving Restrictions No driving for 24 hours
Blood Work BMP in 3-4 days- results to Dr. Roque
Other Services Cardiac Rehab
Instructions:
Stand-Alone Forms: DC Instructions- Cath/EP Lab
Changes to Home Medications: Yes
Discharge Medications:
DC Medications w/original date entered in [employer]
clopidogrel 75 mg tablet 75 mg PO DAILY Blood Clot Prevention/Tx 12/12/23
famotidine 20 mg tablet 20 mg PO BID Gastrointestinal Issue 12/12/23
sodium zirconium cyclosilicate 5 gram oral powder packet (Lokelma) 5 g PO MOWEFR POTASSIUM BINDER 12/12/23
apremilast 30 mg tablet (Otezla) 30 mg PO BID Autoimmune Disorder 12/15/23
cholecalciferol (vitamin D3) 25 mcg (1,000 unit) capsule (Vitamin D3) 25 mcg PO DAILY Supplement 12/15/23
aspirin 81 mg chewable tablet 81 mg PO DAILY Heart disease/condition #0 tabs 12/16/23
hydroxychloroquine 200 mg tablet 200 mg PO BID Anti-inflammatory #0 tabs 12/17/23
metoprolol succinate 100 mg tablet,extended release 24 hr (Toprol XL) 100 mg PO DAILY Heart disease/condition #30 tabs 12/17/23
rosuvastatin 20 mg tablet 20 mg PO QPM High cholesterol #30 tabs 12/17/23
metformin 1,000 mg tablet 1,000 mg PO DAILY Diabetes 01/26/24
metformin 500 mg tablet 500 mg PO QPM Diabetes 01/26/24
dapagliflozin propanediol 10 mg tablet 10 mg PO DAILY #90 tabs 01/27/24
sacubitril 24 mg-valsartan 26 mg tablet (Entresto) 1 tab PO BID #180 tabs 01/27/24
Home Medication Changes
NEW: entresto, dapagliflozin
Pending Results: No
--- NOTE | 2024-01-27 10:29 | W.PN.UPDATE ---
Update Note
Progress Note Update
CT team notified by Cardiology, patient currently in house for CP/NSTEMI.
She underwent emergent CABG x 1 (SVG-RCA) by Dr. Sorensen on 12/12/23.
Cardiac w/o and cath negative for obstructive disease. Patient being scheduled for discharge.
The Cardiothoracic surgery service was asked to assess her sternal incision.
She had a slight area of superficial skin breakdown at the midportion of her sternotomy.
This was treated outpatient with an 11 day course of Keflex and topical Bactroban.
Wound was assessed at the bedside and looks to be fully healed.
She has a trace area of erythema at the midportion which appears to be from the patients surgical bra rubbing against her skin.
She also has two areas at the proximal and distal ends of her sternotomy which appear to be a scab and suture surfacing.
Wound was cleaned with chlorhexidine. Skin was in intact. No drainage appreciated.
Patient instructed to keep incision clean and dry.
Can stop using Bactroban at this point.
When patient wears a bra, place dry dressing over site to prevent rubbing/skin breakdown.
[2024-01-27 11:22] VITALS: BP 120/67; BMI 31.5
[2024-01-27] MEDS: FARXIGA 10 MG PO (11:28)
[2024-01-27 11:59] LABS: Glucose - Point of Care 118 mg/dl (70-99)
--- NOTE | 2024-01-27 15:25 | PTCARENOTE ---
Pt received this am with no c/o of any chest pain or sob. Right rad cath site dressing dry and intact with no hematoma. Pt oob ad nora in the room. Room air sat 98%. Pt discharged to home with her son. Discharge instructions given and reviewed with
good understanding and all questions answered.
== END 2024-01-27 15:27 | disposition home or self-care (01) | DRG 281 ==
LOC: IVU 14:23
PROVIDERS: Nurse Practitioner; ADMITTING PHYSICIAN Student in an Organized Health Care Education/Training Program
PROC: B2111ZZ Fluoroscopy of Multiple Coronary Arteries using Low Osmolar Contrast (ICD-10-PCS; 2024-01-26)
PROC: B2151ZZ Fluoroscopy of Left Heart using Low Osmolar Contrast (ICD-10-PCS; 2024-01-26)
PROC: 4A023N7 Measurement of Cardiac Sampling and Pressure, Left Heart, Percutaneous Approach (ICD-10-PCS; 2024-01-26)
PROC: B2121ZZ Fluoroscopy of Single Coronary Artery Bypass Graft using Low Osmolar Contrast (ICD-10-PCS; 2024-01-26)
DX: I21.4 Non-ST elevation (NSTEMI) myocardial infarction (principal); I51.81 Takotsubo syndrome; T81.41XA Infection following a procedure, superficial incisional surgical site, initial encounter; E11.9 Type 2 diabetes mellitus without complications; E78.5 Hyperlipidemia, unspecified; E87.5 Hyperkalemia; I10 Essential (primary) hypertension; I25.10 Atherosclerotic heart disease of native coronary artery without angina pectoris; Y83.2 Surgical operation with anastomosis, bypass or graft as the cause of abnormal reaction of the patient, or of later complication, without mention of misadventure at the time of the procedure; I25.2 Old myocardial infarction
CPT/HCPCS: 80048; 80061; 82962; 83036; 85027; 87070; 93459; C1760; C1894